=== PATIENT | female | born 1945 | race Caucasian/White ===

== ENCOUNTER 2020-01-19 13:38 | Emergency (ER) | payer MEDICARE, OTHER, SELFPAY ==
--- NOTE | 2020-01-19 13:42 | DI.RAD.S_ITS ---
PROCEDURE: XR CHEST 1V INDICATIONS: chest pain TECHNIQUE: One view of the chest was acquired. COMPARISON: None. FINDINGS: Surgical changes and devices: None. Lungs and pleura: Lungs are clear. No pleural effusions or pneumothorax. Mediastinum: Mediastinal contours appear normal. Heart size is normal. Bones and chest wall: No suspicious bony lesions. Overlying soft tissues appear unremarkable. IMPRESSION: No acute cardiopulmonary pathology. Dictated by: Daniel De Luna M.D. on 01/19/2020 at 14:24 Approved by: Daniel De Luna M.D. on 01/19/2020 at 14:37
--- NOTE | 2020-01-19 13:46 | PC.NURSE ---
1 view chest x-ray at 1346
[2020-01-19 13:51] VITALS: BP 166/68; PULSE 76; RESP 18; TEMP 36.7; O2SAT 98; BMI 34.7
[2020-01-19 14:07] LABS: Add Manual Diff / Slide Review NO; Basophils Absolute Auto 100 /uL (0-100); Basophils Percent Auto 0.7 % (0-2); Eosinophils Absolute Auto 200 /uL (0-450); Eosinophils Percent Auto 2.9 % (2-4); Hematocrit 38.2 % (36-46); Hemoglobin 12.8 g/dL (12.0-16.0); Lymphocytes Absolute Auto 2400 /uL (1100-4500); Lymphocytes Percent Auto 28.7 % (25-40); Mean Corpuscular HGB Conc 33.5 % (30-36); Mean Corpuscular Volume 86.4 fL (80-100); Monocytes Absolute Auto 900 /uL (0-900); Monocytes Percent Auto 10.1 % (3-14); Neutrophils Absolute Auto 4900 /uL (1500-7000); Neutrophils Percent Auto 57.6 % (50-75); Platelet Count 227 X10^3/uL (150-400); Red Blood Cell Count 4.43 X10^6/uL (4.0-5.2); Red Cell Distribution Width 13.7 % (11.6-14.8); White Blood Cell Count 8.4 X10^3/uL (4.5-11.0)
[2020-01-19 14:12] LABS: Prothrombin Time 11.8 SECONDS (10.1-12.7)
[2020-01-19 14:15] LABS: PTT Partial Thromboplastin Tim 31 SECONDS (26.4-36.2)
[2020-01-19 14:16] LABS: Alanine Aminotransferase 37 IU/L (<35); Albumin 4.2 g/dL (3.5-5.0); Albumin Globulin Ratio 1.4 (1.0-2.8); Alkaline Phosphatase 124 U/L (38-126); Aspartate Aminotransferase 33 IU/L (14-36); BUN Creatinine Ratio 18.8 (6-22); Bilirubin Total 0.4 mg/dL (0.2-1.3); Blood Urea Nitrogen 15 mg/dL (7-17); Calcium 9.2 mg/dL (8.4-10.2); Carbon Dioxide 29 mmol/L (22-32); Chloride 98 mmol/L (98-107); Creatine Kinase 40 U/L (30-135); Estimated Glomerular Filt Rate > 60.0 mL/min (>60); Glucose 103 mg/dL (80-110); HEMOLYSIS < 15 (0-50); Lipase 117 U/L (23-300); Potassium 3.8 mmol/L (3.4-5.1); Sodium 131 mmol/L (137-145); Total Protein 7.2 g/dL (6.3-8.2)
[2020-01-19 14:19] VITALS: BP 158/104; PULSE 68; RESP 20; O2SAT 99
--- NOTE | 2020-01-19 14:20 | PC.NURSE ---
c/o irregular heart rate that is now resolved. When it occurred she states she was light headed. Denied chest pain / shortness of breath through out entire episode.
[2020-01-19 14:28] LABS: Troponin I < 0.012 ng/mL (0.01-0.034)
--- NOTE | 2020-01-19 15:09 | ED_ITS ---
HPI - Chest Pain General Chief Complaint: Chest Pain Stated Complaint: heart problems Time Seen by Provider: 01/19/20 14:31 Source: patient Mode of arrival: Ambulatory Limitations: no limitations History of Present Illness HPI narrative: Patient is a ratna 74-year-old female who presents with heart palpitations she states that she had quite a stressful morning with her brother. She later felt some chest heaviness and like her heart is skipping a beat. Pain is nonradiating she denies any shortness of breath. She has not she sitting here her pain is a heaviness is gone. She has been on the monitor she has not shown any sign of skipped beats or arrhythmia. She states that she previously had an NSTEMI it sounds as though it was due to a secondary process. MD complaint: chest pain Duration: now resolved Onset: during rest Pain location: substernal Severity: mild Quality: heaviness Pain radiation: none Relieving factors: nothing Related Data Allergies Allergy/AdvReac Type Severity Reaction Status Date / Time sulfamethoxazole Allergy Mild ITCHING Unverified 11/06/17 12:07 [From ] trimethoprim [From ] Allergy Mild ITCHING Unverified 11/06/17 12:07 adhesive tape [ADHESIVE TAPE] AdvReac Severe RASH Unverified 11/06/17 12:07 PAPER/SILK TAPE OK Review of Systems Review of Systems Narrative: GENERAL: Denies chills, fatigue, malaise, fever, sweats, travel HEENT: Denies sinus pain, ear pain, sore throat, difficulty swallowing, neck pain RESPIRATORY: Denies dyspnea, cough, wheezing, hemoptysis, sputum. CARDIOVASCULAR: See HPI GASTROINTESTINAL: Denies nausea, vomiting, abdominal pain, diarrhea, constipation, melena. : Denies dysuria, frequency, incontinence, hematuria, urinary retention, flank pain. MUSCULOSKELETAL: Denies weakness, joint pain, or bony pain SKIN: No rash, no erythema, no pruritus NEUROLOGIC: Denies weakness, dizziness, headache, numbness, change in speech, confusion PSYCHIATRIC: No concerning psychosocial issues. 12 point review of systems is negative except for those stated above and HPI Patient History Medical History Asthma (Acute) Depression (Acute) Fibromyalgia (Acute) Hypertension (Inactive) Lumbar spinal stenosis (Acute) Osteoarthritis (Acute) Social History Smoking Status: Never smoker Smoking Status: Never smoker alcohol intake frequency: holidays/special occasions only Substance Use Type: does not use Exam Initial Vital Signs Initial Vital Signs: Vital Signs Temperature 98.1 F 01/19/20 13:51 Pulse Rate 76 01/19/20 13:51 Respiratory Rate 18 01/19/20 13:51 Blood Pressure 166/68 H 01/19/20 13:51 Pulse Oximetry 98 01/19/20 13:51 GENERAL: Pleasant alert well-appearing female and in no acute distress. HEENT: Head atraumatic,EOMI, pupils reactive, face symmetric, moist mucous membranes CARDIOVASCULAR: Regular rate and rhythm without murmurs, rubs or gallops. RESPIRATORY: Breath sounds equal bilaterally, no wheezes rales or rhonchi. ABDOMEN: Soft, nontender. Normoactive bowel sounds all 4 quadrants. No guarding or rebound. EXTREMITIES: Normal range of motion, no clubbing or edema. Neurovascularly intact NEUROLOGICAL: Alert and oriented x4.Normal gait and speech. Cranial nerves II through XII grossly intact. SKIN: Warm, dry, no laceration, no petechiae, no rashes or lesions. Scores HEART Score Heart Score history: Slightly Suspicious Heart Score EKG: Normal Heart Score Age: > or = 65 years old Heart Score risk factors: 1-2 risk factors Heart Score troponin: < or = to normal limit Heart Score Total: 3 Course Orders Ordered: ED Orders 01/19/20 13:42 XR chest 1V Stat EKG-12 Lead Stat 01/19/20 14:00 Complete Blood Count AUTO DIFF Stat Comprehensive Metabolic Panel Stat Lipase Stat Partial Thromboplastin Time Stat Prothrombin Time INR Stat TSH w/ Reflex to FT4 Stat Troponin & CK Cardiac Panel Stat 01/19/20 16:13 Troponin I Stat Vital Signs Vital signs: Vital Signs - 8 hr 01/19/20 13:51 01/19/20 14:19 01/19/20 15:29 Temperature 98.1 F Pulse Rate 76 68 65 Respiratory Rate 18 20 18 Blood Pressure 166/68 H Blood Pressure [Left Arm] 158/104 H 142/65 H Pulse Oximetry 98 99 97 01/19/20 16:39 01/19/20 18:20 Temperature 98.5 F Pulse Rate 68 61 Respiratory Rate 18 20 Blood Pressure 141/63 H Blood Pressure [Left Arm] 139/65 Pulse Oximetry 96 95 MDM - Chest Pain Lab Data Attestation: I reviewed the patient's lab results. Result diagrams: 01/19/20 14:00 01/19/20 14:00 Labs: Lab Results 01/19/20 01/19/20 01/19/20 Range/Units 14:00 14:00 14:00 WBC 8.4 (4.5-11.0) X10^3/uL RBC 4.43 (4.0-5.2) X10^6/uL Hgb 12.8 (12.0-16.0) g/dL Hct 38.2 (36-46) % MCV 86.4 (80-100) fL MCH 29.0 (26-34) PG MCHC 33.5 (30-36) % RDW 13.7 (11.6-14.8) % Plt Count 227 (150-400) X10^3/uL Neut % (Auto) 57.6 (50-75) % Lymph % (Auto) 28.7 (25-40) % [place] % (Auto) 10.1 (3-14) % Eos % (Auto) 2.9 (2-4) % Baso % (Auto) 0.7 (0-2) % Neut # (Auto) 4900 (0119-7684) /uL Lymph # (Auto) 2400 (4630-5578) /uL [place] # (Auto) 900 (0-900) /uL Eos # (Auto) 200 (0-450) /uL Baso # (Auto) 100 (0-100) /uL PT 11.8 (10.1-12.7) SECONDS INR 1.0 (0.9-1.3) APTT 31 (26.4-36.2) SECONDS Sodium 131 L (137-145) mmol/L Potassium 3.8 (3.4-5.1) mmol/L Chloride 98 (98-107) mmol/L Carbon Dioxide 29 (22-32) mmol/L BUN 15 (7-17) mg/dL Creatinine 0.80 (0.52-1.04) mg/dL Estimated GFR > 60.0 (>60) mL/min BUN/Creatinine Ratio 18.8 (6-22) Glucose 103 (80-110) mg/dL Calcium 9.2 (8.4-10.2) mg/dL Total Bilirubin 0.4 (0.2-1.3) mg/dL AST 33 (14-36) IU/L ALT 37 H (<35) IU/L Alkaline Phosphatase 124 (38-126) U/L Total Creatine Kinase 40 (30-135) U/L CK-MB (CK-2) TNP CK-MB (CK-2) Rel Index TNP Troponin I < 0.012 (0.01-0.034) ng/mL Total Protein 7.2 (6.3-8.2) g/dL Albumin 4.2 (3.5-5.0) g/dL Globulin 3.0 (1.7-4.1) g/dL Albumin/Globulin Ratio 1.4 (1.0-2.8) Lipase 117 (23-300) U/L TSH (0.47-4.68) uIU/mL 01/19/20 01/19/20 Range/Units 14:00 16:13 WBC (4.5-11.0) X10^3/uL RBC (4.0-5.2) X10^6/uL Hgb (12.0-16.0) g/dL Hct (36-46) % MCV (80-100) fL MCH (26-34) PG MCHC (30-36) % RDW (11.6-14.8) % Plt Count (150-400) X10^3/uL Neut % (Auto) (50-75) % Lymph % (Auto) (25-40) % [place] % (Auto) (3-14) % Eos % (Auto) (2-4) % Baso % (Auto) (0-2) % Neut # (Auto) (7805-2896) /uL Lymph # (Auto) (2838-2778) /uL [place] # (Auto) (0-900) /uL Eos # (Auto) (0-450) /uL Baso # (Auto) (0-100) /uL PT (10.1-12.7) SECONDS INR (0.9-1.3) APTT (26.4-36.2) SECONDS Sodium (137-145) mmol/L Potassium (3.4-5.1) mmol/L Chloride (98-107) mmol/L Carbon Dioxide (22-32) mmol/L BUN (7-17) mg/dL Creatinine (0.52-1.04) mg/dL Estimated GFR (>60) mL/min BUN/Creatinine Ratio (6-22) Glucose (80-110) mg/dL Calcium (8.4-10.2) mg/dL Total Bilirubin (0.2-1.3) mg/dL AST (14-36) IU/L ALT (<35) IU/L Alkaline Phosphatase (38-126) U/L Total Creatine Kinase (30-135) U/L CK-MB (CK-2) CK-MB (CK-2) Rel Index Troponin I < 0.012 (0.01-0.034) ng/mL Total Protein (6.3-8.2) g/dL Albumin (3.5-5.0) g/dL Globulin (1.7-4.1) g/dL Albumin/Globulin Ratio (1.0-2.8) Lipase (23-300) U/L TSH 2.40 (0.47-4.68) uIU/mL Imaging Data Chest x-ray: Radiologist's Impression: PROCEDURE: XR CHEST 1V INDICATIONS: chest pain TECHNIQUE: One view of the chest was acquired. COMPARISON: None. FINDINGS: Surgical changes and devices: None. Lungs and pleura: Lungs are clear. No pleural effusions or pneumothorax. Mediastinum: Mediastinal contours appear normal. Heart size is normal. Bones and chest wall: No suspicious bony lesions. Overlying soft tissues appear unremarkable. IMPRESSION: No acute cardiopulmonary pathology. Dictated by: Daniel De Luna M.D. on 01/19/2020 at 14:24 ECG Data Attestation: I personally reviewed and interpreted this ECG as follows: Prior ECG tracings: available for review Interpretation: Normal sinus rhythm rate 70 p.r. interval 176 QRS 106 QTC 477, no ST elevation depression or T-wave inversion MDM Narrative Medical decision making narrative: She actually now states that she had some has chest heaviness to eat yesterday she noticed at rest and with exertion but she was also coughing and had some abdominal pain as well she was able to sleep last night without any difficulty. Today she had significant heart palpitations. But now in the emergency department is better. She has 2-troponins no changes on her EKG, low risk heart score. I do recommend outpatient stress test and discussed with her to return to the emergency department if her symptoms worsen. Discharge Plan Departure Patient Disposition: Home Clinical Impression: Heart palpitations, Asthma Discharge Date/Time: 01/19/20 18:22 Instructions: DI for Chest Pain, DI for Palpitations Activity Restrictions/Additional Instructions: *You have been diagnosed with palpitation *What to do: I do recommend that he speak with your primary care provider in regards to further cardiac testing *Continue to take medications as directed *Follow up with your primary care provider in 2-3 days *Return to ER if you should have chest heaviness, palpitations dizziness shortness of breath weakness or any new, worsening or concerning symptoms Referrals: Geovani Shaikh DO [Primary Care Provider] -
[2020-01-19 15:29] VITALS: BP 142/65; PULSE 65; RESP 18; O2SAT 97
[2020-01-19 16:39] VITALS: BP 139/65; PULSE 68; RESP 18; O2SAT 96
[2020-01-19 17:43] LABS: Troponin I < 0.012 ng/mL (0.01-0.034)
[2020-01-19 18:20] VITALS: BP 141/63; PULSE 61; RESP 20; TEMP 36.9; O2SAT 95
== END 2020-01-19 18:22 | disposition home or self-care (01) ==
PROVIDERS: Emergency Provider Emergency Medicine; Family Provider Internal Medicine; PCP Family Medicine
DX: R00.2 Palpitations (principal); R07.9 Chest pain, unspecified; R10.9 Unspecified abdominal pain; R05 Cough; J45.909 Unspecified asthma, uncomplicated
CPT/HCPCS: 36415; 71045; 80053; 82550; 83690; 84443; 84484; 85025; 85610; 85730; 93005; 99284

== ENCOUNTER → 2020-03-28 12:45 | Outpatient (CLI) | payer MEDICARE, OTHER, SELFPAY ==
--- NOTE | 2020-03-28 | DI.CT.S_ITS ---
PROCEDURE: CT UE RT WO CON INDICATIONS: Pain in right shoulder TECHNIQUE: Noncontrast 1-1.5 mm thick sections acquired from the acromioclavicular joint to the inferior scapula, with coronal and sagittal reformatting. COMPARISON: None. FINDINGS: Image quality: Excellent. Bones: Severe glenohumeral joint osteoarthritis is seen with near complete loss of joint space, extensive subchondral sclerosis and cyst formation, and prominent inferior marginal osteophyte formation. Moderate acromioclavicular joint osteoarthritic changes also seen. No fracture or dislocation. No suspicious intraosseous lesion. Visualized left upper ribs are grossly intact. Soft tissues: There is no significant joint effusion. No intra-articular loose body. No full-thickness rotator cuff tendon rupture. Sagittal images shows mild to moderate supraspinatus muscle atrophy. IMPRESSION: 1. Severe glenohumeral joint osteoarthritis. No fracture or dislocation. No suspicious intraosseous lesion. Moderate acromioclavicular joint osteoarthritis. 2. No significant joint effusion. No full-thickness rotator cuff tendon rupture. No calcified intra-articular loose body. Mild to moderate supraspinatus muscle atrophy. Dictated by: Daniel De Luna M.D. on 03/28/2020 at 14:46 Approved by: Daniel De Luna M.D. on 03/28/2020 at 14:49
== END ==
PROVIDERS: Family Provider Internal Medicine; PCP Family Medicine; Referring Provider Orthopaedic Surgery; Visit Provider Orthopaedic Surgery
DX: M25.511 Pain in right shoulder (principal); M19.011 Primary osteoarthritis, right shoulder; M62.511 Muscle wasting and atrophy, not elsewhere classified, right shoulder
CPT/HCPCS: 73200

== ENCOUNTER → 2020-04-01 12:33 | Outpatient (CLI) | payer MEDICARE, OTHER, SELFPAY ==
--- NOTE | 2020-04-01 | DI.US.S_ITS ---
PROCEDURE: US ABDOMEN COMPLETE INDICATIONS: Right upper quadrant pain TECHNIQUE: Real-time scanning was performed of the abdominal and retroperitoneal organs, with image documentation. COMPARISON: None. FINDINGS: Liver: Liver is normal in size and homogeneous in echotexture. Gallbladder: Multiple gallstones present. No gallbladder wall thickening or pericholecystic fluid. Negative sonographic [place] sign. Biliary ducts: Intrahepatic bile ducts are non-dilated. Extrahepatic bile duct caliber measures 2.8 mm. Normal is 6-7 mm or less in diameter, or 10 mm or less post-cholecystectomy. Pancreas: Visualized portions of the pancreas are sonographically normal. Spleen: Spleen is normal in size and homogeneous in echotexture. Kidneys: Kidneys are normal in size and echotexture. Right kidney measures 9.0 cm long; left kidney measures 10.7 cm long. No hydronephrosis or nephrolithiasis. No solid masses. Aorta: Visualized aorta is normal in caliber at less than 3 cm. Iliacs: Proximal common iliac arteries are normal in caliber at less than 2.5 cm. IVC: Intrahepatic inferior vena cava is patent. Miscellaneous: No free abdominal fluid. IMPRESSION: Cholelithiasis without acute cholecystitis. If sonographically occult acute cholecystitis is suspected, nuclear medicine HIDA scan could be performed for further evaluation. Dictated by: Alvarez Williamson [facility] Interpreted: Daniel De Luna MD on 04/01/2020 at 13:49 Approved by: Daniel De Luna M.D. on 04/01/2020 at 15:49
== END ==
PROVIDERS: Family Provider Internal Medicine; PCP Family Medicine; Referring Provider Family Medicine; Visit Provider Physician Assistant
DX: R10.11 Right upper quadrant pain (principal); K80.20 Calculus of gallbladder without cholecystitis without obstruction; R11.0 Nausea; R74.8 Abnormal levels of other serum enzymes
CPT/HCPCS: 76700

== ENCOUNTER → 2020-04-12 09:15 | Outpatient (CLI) | payer MEDICARE, OTHER, SELFPAY ==
--- NOTE | 2020-04-12 | DI.NM.S_ITS ---
PROCEDURE: NM HIDA WITH CCK PHARMACEUTICAL: 4.9 mCi Tc-99m mebrofenin IV; 1.6 mcg CCK IV. INDICATIONS: Calculus of gallbladder without cholecystitis TECHNIQUE: Following intravenous administration of Tc-99m mebrofenin, sequential anterior abdominal images were obtained. To evaluate the contractile response of the gallbladder in response to Cholecystokinin (CCK), sincalide (0.02 ?g/kg) was administered by slow intravenous infusion approximately 60 minutes after the administration of the radiopharmaceutical. Sequential imaging was continued for 30 minutes after the start of CCK infusion. Gallbladder ejection fraction was calculated. COMPARISON: [facility], US ABDOMEN COMPLETE, 04/01/2020, 12:41. FINDINGS: Biliary scan: There is normal tracer uptake and excretion by the liver. There is normal visualization of the intrahepatic ducts, common bile duct, and gallbladder. There is normal tracer transit into the duodenum. CCK stimulation: There is absence of contractile response of the gallbladder to CCK infusion. The calculated gallbladder ejection fraction is 0%; normal values are above 35%. It has been shown that any patient abdominal pain after CCK administration is related to the rate of CCK injection, rather than to any underlying gallbladder disease (Clinical Nuclear Medicine 2012; 37: 63-70. Journal of Nuclear Medicine 2014; 55: 1-9). IMPRESSION: 1. Normal filling of gallbladder. No evidence for acute cholecystitis. 2. Absence of contractile response of gallbladder to CCK stimulation with ejection fraction at 0%. This finding may be secondary to gallbladder dyskinesia or chronic cholecystitis. Dictated by: Yaa Enrique M.D. on 04/12/2020 at 11:58 Approved by: Yaa Enrique M.D. on 04/12/2020 at 11:59
== END ==
PROVIDERS: Family Provider Internal Medicine; PCP Family Medicine; Referring Provider Family Medicine; Visit Provider Physician Assistant
DX: R10.11 Right upper quadrant pain (principal); K80.20 Calculus of gallbladder without cholecystitis without obstruction; R74.8 Abnormal levels of other serum enzymes
CPT/HCPCS: 78227; A9537; J2805

== ENCOUNTER → 2020-05-09 15:14 | Outpatient (CLI) | payer MEDICARE, OTHER, SELFPAY ==
[2020-05-09 21:59] LABS: COVID19 -Nasal RAPID Negative (Negative)
== END ==
PROVIDERS: Family Provider Internal Medicine; PCP Family Medicine; Visit Provider Physician Assistant
DX: Z01.812 Encounter for preprocedural laboratory examination (principal)
CPT/HCPCS: 87635

== ENCOUNTER 2020-05-12 06:06 | Inpatient (IN) | payer MEDICARE, OTHER, SELFPAY ==
[2020-05-02 08:47] VITALS: BMI 32.8
[2020-05-12] VITALS (20 sets, daily range): BP systolic 108–176; BP diastolic 46–152; PULSE 63–87; RESP 11–18; TEMP 36.6–37.1; O2SAT 93–98; BMI 34.7
[2020-05-12] MEDS: LACTATED RINGERS 1,000 ML 42 ML IV (06:50)
--- NOTE | 2020-05-12 07:34 | SUR.PREOP ---
Pt poor historian, helped with assessment questions,pt oriented x 4, stated she is very nervous.
--- NOTE | 2020-05-12 07:37 | DI.RAD.S_ITS ---
PROCEDURE: XR SHOULDER RT MIN 2V INDICATIONS: POST OPERATIVE RIGHT SHOULDER TECHNIQUE: 2 views of the shoulder were acquired. COMPARISON: None. FINDINGS: Bones: No fracture. Status post right shoulder arthroplasty. Hardware appears intact expected postoperative alignment. Soft tissues: Expected postsurgical changes and drain present IMPRESSION: Expected postoperative appearance Dictated by: Tucker Romano M.D. on 05/12/2020 at 17:30 Approved by: Tucker Romano M.D. on 05/12/2020 at 17:30
--- NOTE | 2020-05-12 07:38 | SUR.PREOP ---
Ashley CALDERON informed of no orders on this pt.
--- NOTE | 2020-05-12 07:43 | PM.PREOP ---
Pre-operative Note COVID-19 COVID-19 status: Negative Result date/Date tested (Pos, Neg/Pending): 05/09/20 Interval Note History & Physical reviewed/Exam performed by Physician: Yes Changes to H&P: No
[2020-05-12] MEDS: CEFAZOLIN 2 GM/100 ML FROZ.PIGGY IV (07:47)
--- NOTE | 2020-05-12 09:02 | SUR.OPER ---
Addendum entered by Ciara Wilcox R.N. 05/12/20 09:36: Gel pads under left arm and bilateral heels Original Note: Beach chair with Schleathan/Fernando shoulder positioner. Lower body on padded OR bed. Head in foam padded head cradle, secured with straps. Non-operative arm secured <90 degrees abduction. Pillow under knees. Safety belt at thigh. Cloth tape over blanket over lower legs.
[2020-05-12] MEDS: LIDOCAINE 1% W/EPI 20 ML INJ (09:13)
[2020-05-12] MEDS: LACTATED RINGERS 1,000 ML 120 ML IV (09:52)
--- NOTE | 2020-05-12 10:20 | PM.OP.1 ---
Operative Date/Time/Diagnoses Date of procedure: 05/12/20 Time of procedure: 08:00 Pre-op diagnosis: right shoulder arthritis Post-op diagnosis: same Procedure & Clinicians Procedure: right total shoulder arthroplasty Same procedure as scheduled: Yes Indications: right end-stage shoulder arthritis Surgeon: Jack Blanca Filter Machine Operator: Ashley Joshua Click Yes if Unassisted: No Anesthesia Type: General and Peripheral nerve block Operative Notes Findings: end-stage arthritic changes to the glenohumeral joint. Minimal flattening of the humeral head. No sign of any rotator cuff tears. No sign of any high riding humeral head. Osteophytes both anterior inferior as well as posterior around the head and neck. No significant loose bodies. Closure Type: primary Specimen(s): none sent Applied: implant(s) ( 8 mm stem, small glenoid, 46 x 18 humeral head) Estimated Blood Loss (mL): 150 Blood products transfused: none Procedure in detail: On date of service, Patient was met in the holding area. The operative site was signed and witnessed by the OR staff. The surgeries once again discussed with the patient and any remaining questions they had were answered fully. Patient was taken back to the operating theater and placed on the operating table in a supine position. Great care was taken to ensure that all bony prominences were properly padded. Patient was then placed into the beach chair position. The head and neck were properly positioned and secured. A timeout was performed verifying patient's name, procedure, and the operative site. The upper extremity was then prepped and draped in the normal sterile fashion. Previously, the bony anatomy and incision were marked out as well as injected with Marcaine with epinephrine. A deltopectoral approach was performed. 10 blade was used to incise the skin and fascial tissue. A deep knife was used to continue sharp dissection until the cephalic vein was visualized. The cephalic vein was dissected free allowing us to expose the deltopectoral interval. This interval was then developed. A Motley elevator was used to free up the deltoid of any scarring both superficially as well as deeply. The vein and the deltoid were taken laterally while the pectoralis was taken medially. This gave us good visualization of the strap muscles. The clavipectoral fascia was removed and the strap muscles were then retracted medially with the pectoralis. This gave us stabilization of the subscapularis. The circumflex vessels were ligated and the subscapularis was sharply excised off the lesser tuberosity and then tagged. Once the subscapularis was released we're able to dislocate the shoulder. Patient had end-stage arthritic changes to the humeral head as well as the glenoid with large osteophytes anterior inferiorly as well as posteriorly. A Ronger was then used to remove the osteophytes. Next, cutting guide was placed and a saw was used to remove the humeral head. Once the head was removed it was templated. A starting awl was then used to find the canal and then the humerus was reamed and broached. Trial stem was placed and a variety of heads were trialed. A protector placed for the osteotomy was then placed and and we turned our attention back to the subscapularis as well as the glenoid. The subscapularis was freed up and a 360? fashion. The degenerative anterior and inferior capsular tissue was removed. This was followed by removing the degenerative labral tissue from around the glenoid as well as the biceps insertion. This gave us good visualization of the glenoid. Glenoid trials were used until we found the appropriate fit and curvature. Next the center hole was drilled followed by reaming of the glenoid. The wound was copiously irrigated after reaming. Next the pegs were drilled and a trial glenoid was impacted into place. Once we were satisfied with the preparation of the glenoid, the final component was cemented into place. This was followed by impaction. We Return to our attention back to the humerus. The protector plate was removed and heads were trialed once again and so we found the appropriate fit. The trials were removed and bone tunnels were made into the humeral neck. #2 FiberWire were passed through the bone tunnels for eventual subscapularis repair. The final stem and head were impacted into place and the shoulder was reduced. It was taken through range of motion and was felt to be stable in both posterior translation as well as external and internal rotation with abduction. The subscapularis was repaired back to the lesser tuberosity through the bone tunnels. This was then reinforced with soft tissue repair. Part of the rotator interval was then closed. A drain was placed and the rest of the wound was closed in a layered fashion. The shoulder was then cleaned dried and dressed and the patient was taken to the PACU in stable condition. Patient will follow our postoperative protocol for total shoulder arthroplasty. Complications: none Post-operative Condition: stable Disposition: PACU Plan for aftercare: patient will follow our standard protocol for total shoulder arthroplasty
[2020-05-12] MEDS: HYDROMORPHONE 2 MG INJ IV ×4 (10:56→11:29)
--- NOTE | 2020-05-12 11:00 | SUR.PHASEI ---
Report given to Belen. Patient sitting on bed casper per patient request.
--- NOTE | 2020-05-12 11:13 | SUR.PHASEI ---
Assumed care from ISIDRO Proctor. Medicated with Dilaudid, pt states pain med is gradually helping, on bed casper.
--- NOTE | 2020-05-12 11:17 | SUR.PHASEI ---
Report back to ISIDRO Proctor.
[2020-05-12] MEDS: OXYCODONE IR 5 MG TABLET PO (11:40)
--- NOTE | 2020-05-12 11:50 | SUR.PHASEI ---
report called to Ashlyn
--- NOTE | 2020-05-12 12:10 | SUR.PHASEI ---
Patient transferred to the floor with pulse ox and belongings bag by Alaina.
[2020-05-12] MEDS: LACTATED RINGERS 1,000 ML 125 ML IV ×2 (13:19→21:46)
--- NOTE | 2020-05-12 14:14 | PC.NURSE ---
Patient is alert and oriented. Safe hand off from PACU. Patient VSS, lung sounds clear. C/o pain 3/10 in shoulder and numbness and tingling in R thumb, CMS intact. Patient has aquacell dressing w/ hemovac. Aquacell is CDI, hemovac output is serosanguineous. SCD's applied, IS given. Patient educated about the use of call light, bed is low and locked, bed alarm is active. Patient complains of pruritis, telephoned Dr. Last's office, Lawrence CALDERON gave verbal order for 25mg Benadryl Q6, PRN
[2020-05-12] MEDS: diphenhydrAMINE 25 MG TABLET PO (14:46)
--- NOTE | 2020-05-12 16:05 | PT.IIE ---
Current Diagnoses Old myocardial infarction (05/12/20) Primary osteoarthritis, right shoulder (05/12/20) Surgery Performed Operation Date: 05/12/20 07:45 Actual Procedures p Total Shoulder Arthroplasty(Right) - Jack Blanca MD Surgical History (Last Updated 05/02/20 @ 12:23 by Nano Rosado RN) H/O abdominoplasty (Acute ~2007) H/O bariatric surgery (Acute ~1997) History of appendectomy (Acute) History of arthroplasty of left knee (Acute) History of arthroplasty of right knee (Acute) History of bladder surgery (Acute) History of tonsillectomy and adenoidectomy (Acute) History of vaginal hysterectomy (Acute) Hx of bilateral cataract extraction (Acute) Hx of heart artery stent (Acute 07/2018) Medical History (Last Updated 05/02/20 @ 12:23 by Nano Rosado RN) Anxiety (Acute) Asthma (Acute) Coronary artery disease (Acute) Cystocele (Acute) Depression (Acute) Elevated liver enzymes (Acute) Fibromyalgia (Acute) GERD (gastroesophageal reflux disease) (Acute) Hearing impaired (Acute) HTN (hypertension) (Acute) Hypertension (Inactive) Lumbar spinal stenosis (Acute) Mini stroke (Acute) Mixed incontinence (Acute) Myocardial infarction (Acute 07/2018) ERIC (obstructive sleep apnea) (Acute) Osteoarthritis (Acute) Physical Therapy Inpatient Evaluation/Re-Eval M1 PT/OT-IP Prior Functional Status Start: 05/12/20 14:15 Freq: NEEDED Status: Active Protocol: Document 05/12/20 15:41 AW (Rec: 05/12/20 16:05 AW [email or web address]) Medical Review Prior Functional Status Medical History Reviewed Yes Communication WNL. Pt is an effective verbal communicator. Mobility and Gait Pt is an independent ambulator with a limit of a few blocks. Pt is right-handed. Activities of Daily Living and IADL's Pt states she needs help to don her bra; her helps . She is otherwise independent with I/ADL's but she does depend on her spouse for driving. Social History Household Members spouse Living Arrangements Apartment/Condo Number of Stairs To Enter/Railing? Pt lives in a 3rd floor condo. She typically has access to an elevator but states it was not working yesterday and today. Home Environment Standard Height Toilet,Tub/ Shower Home Equipment Four Wheel Walker,Straight Cane Employment Status Retired Additional Social History Comment Pt lives with her spouse who will be available and able to assist when pt goes home. M2 PT-IP Current Condition Start: 05/12/20 14:15 Freq: NEEDED Status: Active Protocol: Document 05/12/20 15:41 AW (Rec: 05/12/20 16:05 AW [email or web address]) Physical Therapy Current Condition Current Condition Evaluation Date 05/12/20 Treatment Diagnosis R TSA; difficulty in walking; impaired independence with ADL 's Onset Date 05/12/20 Precautions Shoulder Precautions Sling,PROM,Internal Rotation to Body,No External Rotation, No Abduction,Forward Flexion to 90 degrees,Pendulums Brace shoulder sling on at all times M3 PT-IP Subjective Start: 05/12/20 14:15 Freq: NEEDED Status: Active Protocol: Document 05/12/20 15:41 AW (Rec: 05/12/20 16:05 AW [email or web address]) Subjective Physical Therapy Visit Type Type Initial Evaluation Visit Start Time 14:25 Visit Stop Time 15:00 Total Visit Minutes 35 Physical Therapy Visit Comments Patient Comments Pt is somewhat groggy but is willing to participate with PT . Patient Goals Return home at discharge Therapy Pain Assessment Pain When Pain Assessed During Mobility Pain Present Pain Present Pain Reported Location r shoulder Intensity 3 Scale Used same at rest and during movement M4 PT-IP Mobility and Gait Start: 05/12/20 14:15 Freq: NEEDED Status: Active Protocol: Document 05/12/20 15:41 AW (Rec: 05/12/20 16:05 AW [email or web address]) PT-Bed Mobility Assessment Supine to Sit Supine to Sit Contact Guard Assistance,Head of Bed Elevated Sit to Supine Sit to Supine Standby Assistance Scooting Scooting to Edge of Bed Standby Assistance Scooting Up and Down in Bed Standby Assistance PT-Transfer Assessment Sit to and From Stand Sit to and from Stand Contact Guard Assistance,Use of Upper Extremities Equipment Transfer Assistive Device Gait Belt Transfers Transfer Destination Bed,Toilet Transfer Technique pt ambulated with and without IV pole support Transfer Ability Level of Assist Contact Guard Assistance Comments Mobility Comments Pt was lying in bed as PT arrived. Shoulder sling was loose and fit poorly. BP 134/ 66 HR 74 SpO2 95% on room air. With HOB elevated 30 degrees, pt moved her legs toward the right side of the bed and sat up CGA. Pt stood from the bed CGA. PT provided assist to adjust the sling for optimal fit. Pt used the IV pole for support to ambulate to the toilet. She tranferred to and from the toilet CGA without holding on to anything; she needed assist to manage the right side of her briefs. She then ambulated with and without IV pole support to the sink where she was able to wash her left hand. With mirror for visual feedback, PT provided instruction in fitting the sling with focus on positioning and support for the wrist. Pt ambulated back to the bed without IV pole support and transferred back to supine SBA. Pt was left with call light and all needs set up on her left side. PT placed fresh ice pack to right shoulder. Bed alarm was armed for safety. Gait Assessment Gait Gait Assistance Required: Standby Assistance,Contact Guard Assist Distance (Feet) 20 Assistive Devices Assistive Device Gait Belt Orthotic/Prosthetic Devices or Brace: No Gait Deviations General Gait Pattern Antalgic,Flexed Trunk,Wide Based Gait Factors Limiting Gait Function Factors Limiting Gait Function Decreased Strength,Limited Range of Motion,Pain,Poor Balance Comments Gait Comments See mobility comments for details. Stair Climbing Assessment Comments Stair Climbing Comments Not assessed. Pt usually uses elevator to access third floor apartment but may need to climb the stairs at discharge depending on elevator access. Pt usually is able to manage stairs independently. PT-Balance Assessment Sitting Balance and Reactions Static Sitting Balance Ability Good Dynamic Sitting Balance Ability Good Standing Balance and Reactions Static Standing Balance Ability Good Dynamic Standing Balance Ability Good M5 PT-IP Objective Assessments Start: 05/12/20 14:15 Freq: NEEDED Status: Active Protocol: Document 05/12/20 15:41 AW (Rec: 05/12/20 16:05 AW [email or web address]) Orientation Orientation/Cognition Level of Alertness Alert Orientation Name,Day of Week,Place, Situation Language Function Ability No Deficits Noted Safety Awareness Understands Safety Issues Memory Description No Deficits Noted Gross Range of Motion Upper Extremity ROM Assessment Right Impaired Lower Extremity ROM Assessment Within Functional Limits Strength Upper Extremity Strength Assessment Right Impaired Lower Extremity Strength Assessment Within Functional Limits Sensation Assessment Sensation Gross Sensation Right UE Impaired Comments Sensation Comments Pt reports tingling in digits 1-2. Muscle Tone Muscle Tone WNL Yes M6 PT-IP Treatment Start: 05/12/20 14:15 Freq: NEEDED Status: Active Protocol: Document 05/12/20 15:41 AW (Rec: 05/12/20 16:05 AW [email or web address]) Physical Therapy Treatment Exercises Exercises Shoulder Pendulums,Elbow Flexion/Extension,Wrist ROM, Hand ROM Education Education Provided Precautions,Post-Op Packet, Safety Brace Education [place],Patient Other Treatments Other Treatment Performed Provided education on role of PT, plan of care, post-op precautions, management of ADL 's, and proper fit of shoulder sling. Pt was provided handout with ADL promotion and ROM exercises. M7 PT-IP Assessment and Plan Start: 05/12/20 14:15 Freq: NEEDED Status: Active Protocol: Document 05/12/20 15:41 AW (Rec: 05/12/20 16:05 AW [email or web address]) PT Summary Assessment and Plan Potential Rehabilitation Potential Good Status of Condition at Evaluation Evolving Summary Impairments Pain,ROM,Strength,Balance, Sensation,Bed Mobility, Transfers,Gait Assessment Summary Carlie is a 75 yo woman seen for PT evaluation on POD0 following R TSA. She is independent with all mobilties at baseline. On evaluation, she required up to CGA assist for all mobility. She was slightly groggy and would benefit from at least one more acute PT session to review precautions, proper sling fitting, and ADL's management. Goals Bed Mobility Goal Independent Transfer Goal Independent Gait Goal Independent Gait Distance 200 Other Goals - inquire if elevator is working; if not - stair training Days to Meet Goals 2 Frequency of Treatment Frequency Of Treatment Twice a Day Treatment Plan Physical Therapy Treatment Plan Bed Mobility Training,Transfer Training,Gait Training, Therapeutic Exercise,Balance Retraining,Post Op Education, Discharge Planning,Hot or Cold Pack,Neuromuscular Re-ed Recommendations To Nursing Amount of Assist Needed Standby Assistance Discharge Recommendations PT Discharge Recommendations Home with Assistance Transportation Needs at Discharge Private Vehicle
[2020-05-12] MEDS: BENZOCAINE/MENTHOL 1 LOZ PKT 1 EACH PO (19:43)
[2020-05-12] MEDS: OXYCODONE IR 10 MG TABLET PO (21:46)
[2020-05-12] MEDS: DOCUSATE 100 MG CAPSULE PO (21:46)
[2020-05-12] MEDS: MAGNESIUM HYDROXIDE 30 ML UDC PO (21:46)
[2020-05-12] MEDS: HYDROMORPHONE 0.5 MG INJ 0.2 MG IV (21:46)
[2020-05-12] MEDS: ZOLPIDEM 5 MG TABLET PO (23:30)
[2020-05-12] MEDS: ACETAMINOPHEN 325 MG TABLET 975 MG PO (23:30)
--- NOTE | 2020-05-13 01:24 | PC.NURSE ---
Addendum entered by Luz Renae R.N. 05/13/20 04:48: Medicated earlier with Oxycodone per ISIDRO Woods for 7/10 pain in right shoulder. States pain severity improving and is now at 6/10 mostly with movement. Declines offer of ice pack. Dressing under axilla saturated with serosanguinous drainage so replaced. CMS intact. Original Note: 2346 Patient is alert and oriented. Breath sounds CTA with RA sat of 95%. HRR. Denies nausea. BT hypoactive and patient denies having passed any flatus as yet. Reports she has urinary urgency with some incontinence so is wearing a pull up; denies dysuria. Is able to move herself in bed. Evening RN reports she is getting up to [facility] with 1 assist. Aquacel dressing to right shoulder intact with drainage noted in middle of dressing; outlined. Hemovac is intact and compressed. Right arm is in sling. Bruising noted in right axilla. CMS intact except for small area of numbness on right thumb. Complains of 7/10 pain and had already been medicated with both IV and po Dilaudid so medicated with Tylenol. Wearing bilateral calf SCD's. Reports having fallen multiple times over past 3 months so fall risk score is high and bed alarm is activated.
[2020-05-13] MEDS: OXYCODONE IR 10 MG TABLET PO ×3 (04:30→11:50)
[2020-05-13] MEDS: BENZOCAINE/MENTHOL 1 LOZ PKT 1 EACH PO ×2 (04:30→06:58)
[2020-05-13 04:35] VITALS: BP 126/57; PULSE 74; RESP 18; TEMP 36.4; O2SAT 95
[2020-05-13 05:39] LABS: Hematocrit 28.5 % (36-46); Hemoglobin 9.6 g/dL (12.0-16.0); Mean Corpuscular HGB Conc 33.5 % (30-36); Mean Corpuscular Hemoglobin 28.4 PG (26-34); Mean Corpuscular Volume 84.8 fL (80-100); Platelet Count 172 X10^3/uL (150-400); Red Blood Cell Count 3.36 X10^6/uL (4.0-5.2); Red Cell Distribution Width 13.4 % (11.6-14.8); White Blood Cell Count 10.5 X10^3/uL (4.5-11.0)
[2020-05-13] MEDS: DOCUSATE 100 MG CAPSULE PO (08:14)
[2020-05-13] MEDS: ACETAMINOPHEN 325 MG TABLET 975 MG PO ×2 (08:15→11:50)
[2020-05-13] MEDS: HYDROMORPHONE 0.5 MG INJ 0.2 MG IV (08:23)
[2020-05-13] MEDS: SODIUM CHLORIDE 0.9% FLUSH 10 ML IV (08:24)
[2020-05-13 08:55] VITALS: BP 137/71; PULSE 72; RESP 16; TEMP 36.6; O2SAT 95
--- NOTE | 2020-05-13 09:34 | PM.DS.1 ---
History of Present Illness History of Present Illness Date Patient Seen: 05/13/20 Time Patient Seen: 09:34 Chief complaint: INPT Narrative: Pain is mild. Overnight pain was more moderate to severe. Denies fever chills. No nausea vomiting. Discharge Providers Provider Date of admission: 05/12/20 06:06 Discharge Date: 05/13/20 Primary care physician: Geovani Shaikh DO Consults: 05/12/20 10:14 Consult to Discharge Planning Routine Comment: Consult to Physical Therapy Evaluate & Treat Comment: Physician Instructions: Evaluate and Treat Consult to Respiratory Therapy Evaluate & Treat Comment: Physician Instructions: Evaluate and treat Discharge provider: Lawrence Chiu PA-C Summary Hospital Course Discharge Diagnosis: Right shoulder arthritis Hospital Course: Procedure: right total shoulder arthroplasty Same procedure as scheduled: Yes Indications: right end-stage shoulder arthritis Surgeon: Jack Blanca Optical Instrument Inspector: Ashley Joshua Click Yes if Unassisted: No Anesthesia Type: General and Peripheral nerve block Operative Notes Findings: end-stage arthritic changes to the glenohumeral joint. Minimal flattening of the humeral head. No sign of any rotator cuff tears. No sign of any high riding humeral head. Osteophytes both anterior inferior as well as posterior around the head and neck. No significant loose bodies. Closure Type: primary Specimen(s): none sent Applied: implant(s) ( 8 mm stem, small glenoid, 46 x 18 humeral head) Estimated Blood Loss (mL): 150 Blood products transfused: none Status at Discharge Cognitive/behavioral status at discharge: at baseline, oriented Functional status at discharge: independent ambulation Overall status at discharge: patient is progressing back to baseline Time Spent with Patient Time spent: Less than 30 minutes Exam Vital Signs (past 8 hours): - 05/13/20 04:35 05/13/20 08:55 Temperature 97.5 F L 97.8 F Pulse Rate 74 72 Respiratory Rate 18 16 Blood Pressure 126/57 L 137/71 Pulse Oximetry 95 95 Oxygen Delivery Method Room Air Oxygen Flow Rate 0 Narrative Exam Narrative: 75-year-old female resting comfortably in bedside chair in no apparent distress. Scant drainage on dressing. Motor functions intact distally of all fingers and wrist. Sensation grossly intact. Right hand is warm and dry. Objective Labs Result Diagrams: 05/13/20 04:50 Labs: Laboratory Results - last 24 hr 10/16/20 04:50 WBC 10.5 RBC 3.36 L Hgb 9.6 L Hct 28.5 L MCV 84.8 MCH 28.4 MCHC 33.5 RDW 13.4 Plt Count 172 Discharge Assessment & Plan Assessment and Plan Assessment: Patient progressing as expected status post right shoulder arthroplasty. Discharge home in stable condition. Discharge Plan Discharge Plan Patient Disposition: Home Discharge orders & Medications Prescriptions: New acetaminophen 325 mg Tablet 975 mg PO TID PRN (Reason: Headache) Qty: 60 RF: 0 bisacodyl 10 mg Suppository 10 mg MA PRN PRN (Reason: Constipation) Qty: 10 RF: 0 oxycodone 10 mg Tablet 10 mg PO Q3HR PRN (Reason: Pain, Severe (7-10)) Qty: 40 RF: 0 Continued atorvastatin 40 mg tablet 40 mg PO QNOON RF: 0 duloxetine [Cymbalta] 20 mg capsule,delayed release(DR/EC) 30 mg PO QNOON RF: 0 clopidogrel [Plavix] 75 mg tablet 75 mg PO QNOON RF: 0 zolpidem 10 mg tablet 10 mg PO DAILY RF: 0 hydrochlorothiazide 25 mg tablet 25 mg PO QNOON RF: 0 bupropion HCl 150 mg tablet sustained-release 12 hr 300 mg PO QNOON RF: 0 amlodipine 5 mg tablet 5 mg PO QNOON RF: 0 Myrbetriq 50 mg tablet extended release 24 hr 50 mg PO DAILY RF: 0 Linzess 290 mcg capsule 290 mcg PO QNOON RF: 0 pantoprazole 40 mg tablet,delayed release (DR/EC) 40 mg PO QNOON RF: 0 estradiol 0.01 % (0.1 mg/gram) cream 1 gram VAG 2XW Qty: 42.5 RF: 5 Follow up/Referrals: Geovani Shaikh DO [Primary Care Provider] - Jack Blanca MD [Physician] - (SNO 2 wks) Diet/Activity/Treatments Diet: Diet as Tolerated Activity: per post op protocol Cold/Heat Therapy: ice as needed Skin/Wound/Dressing Care Report to your healthcare provider any signs of infection, such as:: chills, fever, increased pain, unusual drainage and unusual redness Dressing: keep clean and dry Visit Report/Discharge Packet Instructions: DI for Prescription Opioid Use, DI for Shoulder Replacement Stand Alone Forms: Surgery Discharge Visit Report Forms: Patient Portal/API, Stroke Signs & Symptoms Discharge Data Primary Care Provider: Geovani Shaikh VTE Deep Vein Thrombosis/Pulmonary Embolism Present on Admission: No
--- NOTE | 2020-05-13 10:36 | PT.IPTN ---
Current Diagnoses Old myocardial infarction (05/12/20) Primary osteoarthritis, right shoulder (05/12/20) Surgery Performed Operation Date: 05/12/20 07:45 Actual Procedures p Total Shoulder Arthroplasty(Right) - Jack Blanca MD Physical Therapy Treatment Note M2 PT-IP Current Condition Start: 05/12/20 14:15 Freq: NEEDED Status: Active Protocol: Document 05/12/20 15:41 AW (Rec: 05/12/20 16:05 AW [email or web address]) Physical Therapy Current Condition Current Condition Evaluation Date 05/12/20 Treatment Diagnosis R TSA; difficulty in walking; impaired independence with ADL 's Onset Date 05/12/20 Precautions Shoulder Precautions Sling,PROM,Internal Rotation to Body,No External Rotation, No Abduction,Forward Flexion to 90 degrees,Pendulums Brace shoulder sling on at all times M3 PT-IP Subjective Start: 05/12/20 14:15 Freq: NEEDED Status: Active Protocol: Document 05/13/20 10:02 KS (Rec: 05/13/20 12:57 KS [email or web address]) Subjective Physical Therapy Visit Type Type Treatment Note Visit Start Time 10:02 Visit Stop Time 10:36 Total Visit Minutes 34 Number of PIN DRAFTING MACHINE TENDER Visits 1 Physical Therapy Visit Comments Patient Comments Pt agreeable to work w/ therapy and present for caregiver training. Patient Goals Return home at discharge Therapy Pain Assessment Pain When Pain Assessed During Mobility Pain Present Pain Present Pain Reported Location r shoulder Intensity 4 Scale Used Numeric (0 - 10) Description Aching,Tightness Pain Behaviors Guarding,Holding Area,[place] Pain Management Techniques Re-positioning,Timing of Activity with Medications M4 PT-IP Mobility and Gait Start: 05/12/20 14:15 Freq: NEEDED Status: Active Protocol: Document 05/13/20 10:02 KS (Rec: 05/13/20 12:57 KS [email or web address]) PT-Bed Mobility Assessment Scooting Scooting to Edge of Bed Standby Assistance Scooting Up and Down in Bed Standby Assistance PT-Transfer Assessment Sit to and From Stand Sit to and from Stand Standby Assistance,1 Person Assistance,Use of Upper Extremities Equipment Transfer Assistive Device Gait Belt Transfers Transfer Destination Chair Transfer Technique pt ambulated w/o AD Transfer Ability Level of Assist Standby Assistance Comments Mobility Comments Pt in chair upon arrival from therapy w/ in room. Pt SBA for scooting to EOC and sit<>stand. Pt stated she will be sleeping in recliner at home. Demonstrated gait belt application to pts , pt then ambulated to sink for instruction of sling application. Pts doffed and donned pts sling correctly w/ verbal cues. Pt then ambulated ~75 ft around room w/ SBA. Pt refused stair training, stating she does not need help w/ stairs at home. Pt and pts state they feel safe to return home and have outpatient therapy set up . Gait Assessment Gait Gait Assistance Required: Standby Assistance Distance (Feet) 75 Able to Maintain Weight Bearing Status Yes During Gait Assistive Devices Assistive Device Gait Belt Orthotic/Prosthetic Devices or Brace: No Gait Deviations General Gait Pattern Antalgic,Flexed Trunk,Wide Based Gait Factors Limiting Gait Function Factors Limiting Gait Function Decreased Strength,Limited Range of Motion,Pain,Poor Balance Comments Gait Comments See mobility comments for details. Stair Climbing Assessment Comments Stair Climbing Comments Not assessed. Pt usually uses elevator to access third floor apartment and refused stair training today, stating she does not have trouble doing stairs at home. PT-Balance Assessment Sitting Balance and Reactions Static Sitting Balance Ability Good Dynamic Sitting Balance Ability Good Standing Balance and Reactions Static Standing Balance Ability Good Dynamic Standing Balance Ability Good M5 PT-IP Objective Assessments Start: 05/12/20 14:15 Freq: NEEDED Status: Active Protocol: Document 05/12/20 15:41 AW (Rec: 05/12/20 16:05 AW [email or web address]) Orientation Orientation/Cognition Level of Alertness Alert Orientation Name,Day of Week,Place, Situation Language Function Ability No Deficits Noted Safety Awareness Understands Safety Issues Memory Description No Deficits Noted Gross Range of Motion Upper Extremity ROM Assessment Right Impaired Lower Extremity ROM Assessment Within Functional Limits Strength Upper Extremity Strength Assessment Right Impaired Lower Extremity Strength Assessment Within Functional Limits Sensation Assessment Sensation Gross Sensation Right UE Impaired Comments Sensation Comments Pt reports tingling in digits 1-2. Muscle Tone Muscle Tone WNL Yes M6 PT-IP Treatment Start: 05/12/20 14:15 Freq: NEEDED Status: Active Protocol: Document 05/13/20 10:02 KS (Rec: 05/13/20 12:57 KS [email or web address]) Physical Therapy Treatment Exercises Exercises Elbow Flexion/Extension,Wrist ROM,Hand ROM Education Education Provided Precautions,Post-Op Packet, Safety Brace Education [place],Patient Other Treatments Other Treatment Performed Caregiver training w/ pts including sling application. M7 PT-IP Assessment and Plan Start: 05/12/20 14:15 Freq: NEEDED Status: Active Protocol: Document 05/13/20 10:02 KS (Rec: 05/13/20 12:57 KS [email or web address]) PT Summary Assessment and Plan Potential Rehabilitation Potential Good Status of Condition at Evaluation Evolving Summary Impairments Pain,ROM,Strength,Balance, Sensation,Bed Mobility, Transfers,Gait Progress Towards Goals Progressing Toward Goals Assessment Summary Pt SBA for transfers and ambulation. OTs successfully able to carla and doff pts sling. Pt ambulated ~ 75 ft around room and performed wrist and hand ROM as well as elbow flexion/ extension, which she tolerated well. Pt refused stair training, stating she has no problem performing stairs at home. Pt will benefit from outpatient therapy, which she has set to begin next week. Goals Bed Mobility Goal Independent Transfer Goal Independent Gait Goal Independent Gait Distance 200 Other Goals - inquire if elevator is working; if not - stair training Days to Meet Goals 2 Frequency of Treatment Frequency Of Treatment Twice a Day Treatment Plan Physical Therapy Treatment Plan Bed Mobility Training,Transfer Training,Gait Training, Therapeutic Exercise,Balance Retraining,Post Op Education, Discharge Planning,Hot or Cold Pack,Neuromuscular Re-ed Recommendations To Nursing Amount of Assist Needed Standby Assistance Discharge Recommendations PT Discharge Recommendations Home with Assistance, Outpatient PT Transportation Needs at Discharge Private Vehicle
--- NOTE | 2020-05-13 13:43 | CM.DANOTE ---
DCP Assessment: EMR reviewed: patient is a 75 yr old female who was admitted for Rt TSA preformed by Dr. Blanca. Patients PCP is Dr. Shaikh. CM/RN met with patient at the bedside and explained role. patient was alert and oriented x3. Patient currently lives with her in a 3rd floor condo in [place]. Patient states there is usually an elevator for her to use to get to the 3rd floor but it is currently being repaired. Patient is Independent at base line and relays on her for all the driving needs. I: Medicare and for life Plan: D/C home with when medically stable- most likely today. D/C home with no needs. Sheyla Gilman RN Discharge Planning/Care Management CM Discharge Assessment Start: 05/13/20 13:41 Freq: Status: Active Protocol: Document 05/13/20 13:41 HS (Rec: 05/13/20 13:43 HS [id number]) Discharge Planning Assessment Assigned [employer] Sheyla Gilman RN DPOA/Assigned Designee Name Rei Oreilly () Contact Information [phone] Advance Directives? No History Provided By Patient Has Patient been admitted in last 30 No days? Prior Living Arrangements Apartment/Condo Household Members spouse Type of transporation used prior to Relies on Others admit Comment patients does all the driving. Independent with ADL's Yes Is patient alert and oriented? Yes Caregiver for Another No DME Already Rented / Owned FWW / Walker,Cane Barriers to Discharge No Discharge Plan Home Referrals Initiated None needed Whiteboard Updated in Patient Room with Yes name and ext. 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 Precinct Review Status In Process Next Review Type Continued Stay Review Pre-Anesthesia Assessment Start: 05/02/20 08:47 Freq: Status: Complete Protocol: Document 05/02/20 08:47 CAB (Rec: 05/02/20 09:57 CAB [id number]) Pre-Anesthesia Assessment Patient Information Reviewed Via Phone Assessment Assessment Completed With Patient Diagnostic Results BMP/CMP,CBC,EKG Comment Outside labs/EKG scanned, COVID screen @ 05/09/20 Primary Care Provider Geovani Shaikh Seen Specialist in Last 12 Months Yes Specialist Seen Shredding Specialist,General surgeon, Sign Carpenter,Orthopedist Primary Language Korean Skidder Required No Height 154.94 cm Weight 78.925 kg Body Mass Index (BMI) 32.8 Hearing Ability Hard of Hearing Visual Assist Magnifying Glass Dentition Type Teeth, Natural Present,Teeth, Missing Barriers to Learning Age related,Auditory Hx Anesthesia Reactions Yes: I woke up during surgery once Hx Family Anesthesia Reaction No Hx Malignant Hyperthermia No Hx Blood Transfusions Yes: s/p AL, c/w internal bleeding Hx Blood Transfusion Reaction No Anesthesia Review Requested No alcohol intake current alcohol intake frequency holidays/special occasions only Smoking Status Never smoker Substance Use Type does not use Pain Present Pain Reported Musculoskeletal Symptoms Abnormal Gait,Joint Pain, Limited Range of Motion,Neck Pain,Radiating Pain into Limb History of Falling (Recent or History of Yes ) Patient is completely paralyzed or No completely immobile Prosthesis or Orthotic Device Cane Mental Status Oriented to own ability Is patient on oxygen? 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 Santiago-last visit 03/03/20 Hx Pacemaker/ICD No Pacemaker Rep Required? No Cardiac Clearance Received Yes Comment Cardiac records scanned to record Diet Type At Home Regular dysphagia No Gastrointestinal Symptoms Bloating,Constipation,Reflux Bladder Pattern Frequency,Incontinent,Urgency Urinary Catheter Present No Hx Urinary Self Catheterization No Diabetes Yes: By current lab 03/23/20 HgbA1C 6.5 Date 03/23/20 Comment Discussed results w/pt, states PCP aware, told me nothing to worry about Patient No Lactating No Hx Drug Resistant Organism No Presence of External or Internal Medical Yes: Cardiac stent, bilat eye Devices lens, bilat knee prosthesis Have you had any close contact with No someone diagnosed with COVID-19? Marital Status Lives With spouse Prior Living Arrangements Apartment/Condo Number of Floors (Floors) One Floor Support System Spouse Does the Patient Have Assistance After Yes Surgery Patient Discharge Plan Description Return Home Comment Pt advised 1 day length of stay per surgeon Feels Safe in Current Environment Yes Been Physically Hurt or Threatened By a No Person in Current Environment Do you have thoughts of harming yourself None or others? Are you currently considering suicide? No Do you have a plan to hurt yourself or No Plan others? Do You Have Any Spiritual Beliefs That No May Affect Your HC Choices? Do You Have Any Cultural Practices That No May Affect Your HC Choices? Comment Kelin Who Can We Speak to About Patient's Care Family, friends Identifying Code for Release of Patient Declines to issue Information Health Care Proxy/Next of Kin Gibran () Health Care Proxy Emergency Contact Name Gibran () Emergency Contact Advance Directives? No Power of It Integration Architect No PAC Instructions Durable medical equipment, Medications to take/avoid, Nasal antibiotic,No ETOH/ petroleum product on skin DOS, NPO,Post-op transportation,Pre -surgical wash,Sturdy shoes/ comfortable clothes,Do not bring valuables and remove jewelry
--- NOTE | 2020-05-13 14:36 | PC.NURSE ---
Patient medicated with prn pain med prior to d/cs; d/c instructions includes f/u appt, s/sx infection, s/sx stroke, RX medications side effects, and care of shoulder; pt escorted via wheelchair to private vehicle
== END 2020-05-13 13:30 | disposition home or self-care (01) | DRG 483 ==
PROVIDERS: Admitting Provider Orthopaedic Surgery; Family Provider Internal Medicine; PCP Family Medicine; Referring Provider Orthopaedic Surgery; Visit Provider Orthopaedic Surgery
PROC: 0RQJ0ZZ Repair Right Shoulder Joint, Open Approach (ICD-10-PCS; CPT 23472; principal; 2020-05-12 07:45)
DX: M19.011 Primary osteoarthritis, right shoulder (principal); E66.9 Obesity, unspecified; I10 Essential (primary) hypertension; M79.7 Fibromyalgia; F32.9 Major depressive disorder, single episode, unspecified; J45.909 Unspecified asthma, uncomplicated; I25.10 Atherosclerotic heart disease of native coronary artery without angina pectoris; F41.9 Anxiety disorder, unspecified; G47.33 Obstructive sleep apnea (adult) (pediatric); Z68.34 Body mass index [BMI] 34.0-34.9, adult; Z01.812 Encounter for preprocedural laboratory examination; Z11.59 Encounter for screening for other viral diseases
CPT/HCPCS: 36415; 73030; 85027; 87635; 97110; 97116; 97161; 97530; C1776; J0330; J0690; J1100; J1170; J2405; J2704; J3010

== ENCOUNTER 2020-06-05 14:34 | Emergency (ER) | payer MEDICARE, OTHER, SELFPAY ==
[2020-05-12 13:01] VITALS: BMI 34.7
[2020-06-05] VITALS (19 sets, daily range): BP systolic 138–177; BP diastolic 62–74; PULSE 71–87; RESP 14–18; TEMP 36.4; O2SAT 91–98; BMI 33.2
--- NOTE | 2020-06-05 15:01 | DI.RAD.S_ITS ---
PROCEDURE: XR SHOULDER RT MIN 2V INDICATIONS: Recent total arthroplasty with concern of infection TECHNIQUE: 2 views of the shoulder were acquired. COMPARISON: [facility], CR, XR SHOULDER RT MIN 2V, 05/12/2020, 10:43. FINDINGS: Bones: Status post right shoulder arthroplasty which appears unchanged in postoperative alignment. No evidence for acute hardware complication. There is suggestion of overlying soft tissue swelling of the proximal right shoulder and upper arm. There is suggestion of possible subtle periosteal reaction involving the medial margin of the proximal right humeral diaphysis. This may be artifactual. No acute fractures or dislocations. No suspicious bony lesions. Visualized ribs appear intact. Soft tissues: No suspicious soft tissue calcifications. IMPRESSION: Status post right shoulder arthroplasty without evidence for acute hardware complication. There is soft tissue swelling of the right shoulder and right upper arm. No underlying osseous erosions but there is suggestion of possible subtle periosteal reaction of the proximal, medial cortex of the right humerus. This may be artifactual. Consider dedicated radiographs of the right humerus. Dictated by: Flavio Jauregui M.D. on 06/05/2020 at 14:16 Approved by: Flavio Jauregui M.D. on 06/05/2020 at 14:24
--- NOTE | 2020-06-05 15:45 | DI.RAD.S_ITS ---
PROCEDURE: XR HUMERUS RT 2V INDICATIONS: specifc view to r/o osteomyelitis TECHNIQUE: AP and lateral views of the humerus were acquired. COMPARISON: [facility], CT, CT UE RT WO CON, 03/28/2020, 12:59. [facility], CR, XR SHOULDER RT MIN 2V, 05/12/2020, 10:43. [facility], CR, XR SHOULDER RT MIN 2V, 06/05/2020, 15:03. FINDINGS: Bones: Status post right shoulder arthroplasty. Alignment is anatomic. No evidence for acute hardware complication. Previously described irregular cortex of the medial margin of the proximal right humerus is again noted. No cortical erosion. No overlying soft tissue mass. Soft tissues: No suspicious soft tissue calcifications. Soft tissue swelling overlying the right shoulder. IMPRESSION: Subtle, irregular cortex involving the medial margin of the proximal right humerus may represent irregular periosteal reaction secondary to an inflammatory/infectious process given reported history of concern for osteomyelitis. No osseous erosions. Other considerations include insertion site of the adjacent musculature as review of CT dated March 28, 2020 demonstrated mild cortical regularity in the proximal, medial humeral cortex. Dictated by: Flavio Jauregui M.D. on 06/05/2020 at 15:37 Approved by: Flavio Jauregui M.D. on 06/05/2020 at 15:48
--- NOTE | 2020-06-05 16:05 | ED_ITS ---
HPI - Skin/Abscess/Foreign Bdy <Ruthie IbarraJEAN CARLOS - Last Filed: 06/05/20 20:30> General Chief complaint: Skin/Abscess/Foreign Body Stated complaint: Suspects sepsis, few wks post-op of r shoulder Time Seen by Provider: 06/05/20 14:38 Source: patient Mode of arrival: Family Vehicle Limitations: no limitations History of Present Illness HPI narrative: 75yo female with a history of a right shoulder replacement approximately [address] Blanca, presents emergency department for r edness on her shoulder that started yesterday. Patient states her shoulder replacement has been painful, she did attend 1 of her follow-up appointment and this is reassuring approximately 1.5 weeks ago. However, she was concerned about the redness. She states she saw streaks coming down her arm this morning. Denies any pus or discharge from her incision. Patient denies any fevers, does report intermittent chills. She denies any abdominal pain, chest pain, shortness of breath, dizziness, nausea, vomiting, diarrhea, or any other concerns. Related Data Home Medications Medication Instructions Recorded Confirmed amlodipine 5 mg tablet 5 mg PO QNOON 02/17/20 05/12/20 atorvastatin 40 mg tablet 40 mg PO QNOON 02/17/20 05/12/20 bupropion HCl 150 mg tablet,12 hr 300 mg PO QNOON 02/17/20 05/12/20 sustained-release clopidogrel 75 mg tablet 75 mg PO QNOON 02/17/20 05/12/20 duloxetine 20 mg capsule,delayed 30 mg PO QNOON cap 02/17/20 05/12/20 release hydrochlorothiazide 25 mg tablet 25 mg PO QNOON 02/17/20 05/12/20 linaclotide 290 mcg capsule 290 mcg PO QNOON 02/17/20 05/12/20 mirabegron 50 mg tablet,extended 50 mg PO DAILY 02/17/20 05/12/20 release 24 hr pantoprazole 40 mg tablet,delayed 40 mg PO QNOON 02/17/20 05/12/20 release zolpidem 10 mg tablet 10 mg PO DAILY tab 02/17/20 05/12/20 Previous Rx's Medication Instructions Recorded estradiol 1 gram VAG 2XW #42.5 gram 04/05/20 acetaminophen 975 mg PO TID PRN #60 tab 05/13/20 bisacodyl 10 mg NH PRN PRN #10 ea 05/13/20 oxycodone 10 mg PO Q3HR PRN #40 tab 05/13/20 cephalexin 500 mg PO QID 10 Days #40 cap 06/05/20 Allergies Allergy/AdvReac Type Severity Reaction Status Date / Time adhesive tape [ADHESIVE TAPE] Allergy Severe RASH Verified 06/05/20 14:49 PAPER/SILK TAPE OK sulfamethoxazole Allergy Mild ITCHING Verified 06/05/20 14:49 [From ] trimethoprim [From ] Allergy Mild ITCHING Verified 06/05/20 14:49 paroxetine AdvReac Rash Verified 06/05/20 14:49 Review of Systems <JEAN CARLOS Darby - Last Filed: 06/05/20 20:30> Review of Systems Narrative: REVIEW OF SYSTEMS: GENERAL: Denies fever or chills. HENT: No head trauma. CARDIOVASCULAR: No chest pain or syncope. RESPIRATORY: No cough. GASTROINTESTINAL: No nausea, vomiting, diarrhea, or constipation. GENITOURINARY: No flank pain. MUSCULOSKELETAL: Complains of right shoulder pain, see HPI. INTEGUMENTARY: Reports redness to right shoulder, see HPI. NEURO: No numbness, tingling. PSYCH: No behavior or mood changes. Patient History <JEAN CARLOS Darby - Last Filed: 06/05/20 20:30> Medical History Anxiety (Acute) Asthma (Acute) Coronary artery disease (Acute) Cystocele (Acute) Depression (Acute) Elevated liver enzymes (Acute) Fibromyalgia (Acute) GERD (gastroesophageal reflux disease) (Acute) Hearing impaired (Acute) HTN (hypertension) (Acute) Hypertension (Inactive) Lumbar spinal stenosis (Acute) Mini stroke (Acute) Mixed incontinence (Acute) Myocardial infarction (Acute 07/2018) ERIC (obstructive sleep apnea) (Acute) Osteoarthritis (Acute) Surgical History H/O abdominoplasty (Acute ~2007) H/O bariatric surgery (Acute ~1997) History of appendectomy (Acute) History of arthroplasty of left knee (Acute) History of arthroplasty of right knee (Acute) History of bladder surgery (Acute) History of tonsillectomy and adenoidectomy (Acute) History of vaginal hysterectomy (Acute) Hx of bilateral cataract extraction (Acute) Hx of heart artery stent (Acute 07/2018) Family History Mother Hypertension Colon cancer Brother Hypertension Sister Hypertension Father Hypertension Grandmother Diabetes mellitus Father Pancreatic cancer Social History marital status: household members: spouse occupational status: previously employed Smoking Status: Never smoker alcohol intake: current substance use type: does not use Smoking Status: Never smoker alcohol intake frequency: holidays/special occasions only Substance Use Type: does not use Exam <JEAN CARLOS Darby - Last Filed: 06/05/20 20:30> Initial Vital Signs Initial Vital Signs: Vital Signs Temperature 97.6 F 06/05/20 14:44 Pulse Rate 71 06/05/20 14:44 Respiratory Rate 18 06/05/20 14:44 Blood Pressure 173/74 H 06/05/20 14:44 Pulse Oximetry 98 06/05/20 14:44 PHYSICAL EXAMINATION: GENERAL: Well groomed, alert, and cooperative. Answers questions promptly and appropriately. Vital signs noted. HENT: Normocephalic, atraumatic. EYES: Symmetrical, sclera white, no periorbital swelling. CARDIOVASCULAR: S1 and S2 sounds normal. Regular rate and rhythm, no murmurs, clicks, or bruits. No pedal edema. RESPIRATORY: Normal respiratory rate, trachea midline, airway patent. No stridor, nasal flaring or accessory muscle use. Lungs are clear in all [place]. MUSCULOSKELETAL: Slight tenderness to palpation of right shoulder which I would suspect postop. Normal gait and coordination. Equal tone and mass bilaterally. EXTREMITIES: CMS intact. An area of approximately 4 cm x 4 cm of erythema and increased temp noted to right anterior lateral aspect of shoulder, erythema is approximately 8 cm away from incision. Incision intact with healing scar, no purulent drainage or surrounding erythema. SKIN: Warm, dry, soft, appropriate color for ethnicity. No lesions, rashes, or wounds. NEURO: Alert and Oriented X 3. No sensory deficits. PSYCH: Appropriate affect and mood. <Shiva Álvarez DO - Last Filed: 06/06/20 07:17> Initial Vital Signs Initial Vital Signs: Vital Signs Temperature 97.6 F 06/05/20 14:44 Pulse Rate 71 06/05/20 14:44 Respiratory Rate 18 06/05/20 14:44 Blood Pressure 173/74 H 06/05/20 14:44 Pulse Oximetry 98 06/05/20 14:44 Course <JEAN CARLOS Darby - Last Filed: 06/05/20 20:30> Course Course Narrative: 1755: I spoke with orthopedic, Dr. Fraser, he states he will come evaluate the patient in approximately 2 hours when he has completed the case. 1930: Orthopedic, Dr. Fraser at bedside, confirms erythema is most likely superficial, recommends treatment for cellulitis and follow-up. Orders Ordered: Discontinued Medications Cephalexin HCl (Keflex) 500 mg PO NOW ONE Stop: 06/05/20 20:07 Last Admin: 06/05/20 20:34 Dose: 500 mg Documented by: MARION Consultations Consultation #1: Patient staffed [facility] Dr. Álvarez discussed test, test results, plan of care. Vital Signs Vital signs: Vital Signs - 8 hr 06/05/20 14:44 06/05/20 15:23 06/05/20 15:25 Temperature 97.6 F Pulse Rate 71 74 73 Respiratory Rate 18 Blood Pressure 173/74 H 177/68 H Pulse Oximetry 98 97 98 06/05/20 15:30 06/05/20 15:31 06/05/20 16:00 Temperature Pulse Rate 75 73 73 Respiratory Rate Blood Pressure 150/70 H Pulse Oximetry 96 95 98 06/05/20 16:30 06/05/20 17:00 06/05/20 17:30 Temperature Pulse Rate 71 71 72 Respiratory Rate Blood Pressure Pulse Oximetry 96 96 93 06/05/20 17:44 06/05/20 17:45 06/05/20 18:00 Temperature Pulse Rate 77 76 73 Respiratory Rate Blood Pressure 166/72 H Pulse Oximetry 97 98 97 06/05/20 18:01 06/05/20 18:30 06/05/20 19:00 Temperature Pulse Rate 73 76 76 Respiratory Rate Blood Pressure 161/73 H 138/62 155/70 H Pulse Oximetry 97 96 93 06/05/20 19:30 06/05/20 19:31 06/05/20 20:00 Temperature Pulse Rate 87 86 87 Respiratory Rate Blood Pressure 142/63 H 148/66 H Pulse Oximetry 94 95 91 <Shiva Álvarez DO - Last Filed: 06/06/20 07:17> Orders Ordered: Discontinued Medications Cephalexin HCl (Keflex) 500 mg PO NOW ONE Stop: 06/05/20 20:07 Last Admin: 06/05/20 20:34 Dose: 500 mg Documented by: MARION Vital Signs Vital signs: Vital Signs - 8 hr 06/05/20 14:44 06/05/20 15:23 06/05/20 15:25 Temperature 97.6 F Pulse Rate 71 74 73 Respiratory Rate 18 Blood Pressure 173/74 H 177/68 H Pulse Oximetry 98 97 98 06/05/20 15:30 06/05/20 15:31 06/05/20 16:00 Temperature Pulse Rate 75 73 73 Respiratory Rate Blood Pressure 150/70 H Pulse Oximetry 96 95 98 06/05/20 16:30 06/05/20 17:00 06/05/20 17:30 Temperature Pulse Rate 71 71 72 Respiratory Rate Blood Pressure Pulse Oximetry 96 96 93 06/05/20 17:44 06/05/20 17:45 06/05/20 18:00 Temperature Pulse Rate 77 76 73 Respiratory Rate Blood Pressure 166/72 H Pulse Oximetry 97 98 97 06/05/20 18:01 06/05/20 18:30 06/05/20 19:00 Temperature Pulse Rate 73 76 76 Respiratory Rate Blood Pressure 161/73 H 138/62 155/70 H Pulse Oximetry 97 96 93 06/05/20 19:30 06/05/20 19:31 06/05/20 20:00 Temperature Pulse Rate 87 86 87 Respiratory Rate Blood Pressure 142/63 H 148/66 H Pulse Oximetry 94 95 91 MDM - Skin/Abscess/Foreign Bdy <JEAN CARLOS Darby - Last Filed: 06/05/20 20:30> Medical Records Attestation: I reviewed the patient's medical records. Lab Data Attestation: I reviewed the patient's lab results. Result diagrams: 06/05/20 16:15 06/05/20 16:15 Labs: Lab Results 06/05/20 06/05/20 06/05/20 Range/Units 15:33 16:15 16:15 WBC 9.1 (4.5-11.0) X10^3/uL RBC 4.09 (4.0-5.2) X10^6/uL Hgb 11.0 L (12.0-16.0) g/dL Hct 34.3 L (36-46) % MCV 83.8 (80-100) fL MCH 26.9 (26-34) PG MCHC 32.1 (30-36) % RDW 13.9 (11.6-14.8) % Plt Count 304 (150-400) X10^3/uL Neut % (Auto) 73.4 (50-75) % Lymph % (Auto) 13.6 L (25-40) % [place] % (Auto) 8.3 (3-14) % Eos % (Auto) 2.0 (2-4) % Baso % (Auto) 2.7 H (0-2) % Neut # (Auto) 6700 (5814-7014) /uL Lymph # (Auto) 1200 (5315-6687) /uL [place] # (Auto) 800 (0-900) /uL Eos # (Auto) 200 (0-450) /uL Baso # (Auto) 200 H (0-100) /uL ESR 35 H (0-20) MM/HR Sodium 135 L (137-145) mmol/L Potassium 4.1 (3.4-5.1) mmol/L Chloride 102 (98-107) mmol/L Carbon Dioxide 27 (22-32) mmol/L BUN 17 (7-17) mg/dL Creatinine 0.93 (0.52-1.04) mg/dL Estimated GFR 58.6 L (>60) mL/min BUN/Creatinine Ratio 18.3 (6-22) Glucose 98 (80-110) mg/dL Lactate (0.7-2.1) mmol/L Calcium 9.2 (8.4-10.2) mg/dL Total Bilirubin 0.5 (0.2-1.3) mg/dL AST 32 (14-36) IU/L ALT 41 H (<35) IU/L Alkaline Phosphatase 163 H (38-126) U/L C-Reactive Protein < 0.5 (<1.0) mg/dL Total Protein 7.8 (6.3-8.2) g/dL Albumin 4.2 (3.5-5.0) g/dL Globulin 3.6 (1.7-4.1) g/dL Albumin/Globulin Ratio 1.2 (1.0-2.8) Lipase 52 (23-300) U/L Urine Color Yellow Urine Appearance Sl cloudy Urine pH 7.0 (4.5-8.0) Ur Specific [place] 1.010 (1.000-1.035) Urine Protein Negative (Negative) Urine Glucose (UA) Negative (Negative) g/dL Urine Ketones Negative (NEGATIVE) Urine Occult Blood Trace-intact (Negative) Urine Nitrate Negative (Negative) Urine Bilirubin Negative (NEGATIVE) Urine Urobilinogen 0.2 (0.2) E.U./dL Ur Leukocyte Esterase 1+ H (NEGATIVE) Urine RBC 0-1/hpf (0-5/HPF) Urine WBC 10-30/hpf H (0-5/HPF) Ur Squamous Epith Cells 0-1 /hpf (0-5/HPF) Urine Bacteria Few (2-10) H (None) Ur Culture Indicated? Specimen cultured 06/05/20 Range/Units 16:15 WBC (4.5-11.0) X10^3/uL RBC (4.0-5.2) X10^6/uL Hgb (12.0-16.0) g/dL Hct (36-46) % MCV (80-100) fL MCH (26-34) PG MCHC (30-36) % RDW (11.6-14.8) % Plt Count (150-400) X10^3/uL Neut % (Auto) (50-75) % Lymph % (Auto) (25-40) % [place] % (Auto) (3-14) % Eos % (Auto) (2-4) % Baso % (Auto) (0-2) % Neut # (Auto) (8453-3874) /uL Lymph # (Auto) (3307-3311) /uL [place] # (Auto) (0-900) /uL Eos # (Auto) (0-450) /uL Baso # (Auto) (0-100) /uL ESR (0-20) MM/HR Sodium (137-145) mmol/L Potassium (3.4-5.1) mmol/L Chloride (98-107) mmol/L Carbon Dioxide (22-32) mmol/L BUN (7-17) mg/dL Creatinine (0.52-1.04) mg/dL Estimated GFR (>60) mL/min BUN/Creatinine Ratio (6-22) Glucose (80-110) mg/dL Lactate 1.1 (0.7-2.1) mmol/L Calcium (8.4-10.2) mg/dL Total Bilirubin (0.2-1.3) mg/dL AST (14-36) IU/L ALT (<35) IU/L Alkaline Phosphatase (38-126) U/L C-Reactive Protein (<1.0) mg/dL Total Protein (6.3-8.2) g/dL Albumin (3.5-5.0) g/dL Globulin (1.7-4.1) g/dL Albumin/Globulin Ratio (1.0-2.8) Lipase (23-300) U/L Urine Color Urine Appearance Urine pH (4.5-8.0) Ur Specific [place] (1.000-1.035) Urine Protein (Negative) Urine Glucose (UA) (Negative) g/dL Urine Ketones (NEGATIVE) Urine Occult Blood (Negative) Urine Nitrate (Negative) Urine Bilirubin (NEGATIVE) Urine Urobilinogen (0.2) E.U./dL Ur Leukocyte Esterase (NEGATIVE) Urine RBC (0-5/HPF) Urine WBC (0-5/HPF) Ur Squamous Epith Cells (0-5/HPF) Urine Bacteria (None) Ur Culture Indicated? Urine Dip Bedside Urine Glucose Negative Bedside Urine Bilirubin - Negative Bedside Urine Ketone - Negative Urine Specific [place] 1.010 Bedside Urine Occult Blood +/- Bedside Urine pH 7.0 Bedside Urine Protein - Negative Bedside Urine Urobilinogen - Negative Bedside Urine Nitrite - Negative Bedside Urine Leukocytes +/- 15 Esterase Imaging Data Extremity x-ray #1: Radiologist's Impression: [address] [address] XRay Report Signed Patient: Carlie Oreilly EMR#: [id number] : 4Acct:[id number] Age/Sex: 75 / FDate of Service: 06/05/20 Loc: ED Accession Number: [id number] Procedure: XR shoulder RT min 2V Ordering Provider: Shiva Álvarez D.O. PROCEDURE: XR SHOULDER RT MIN 2V INDICATIONS: Recent total arthroplasty with concern of infection TECHNIQUE: 2 views of the shoulder were acquired. COMPARISON: [facility], CR, XR SHOULDER RT MIN 2V, 05/12/2020, 10:43. FINDINGS: Bones: Status post right shoulder arthroplasty which appears unchanged in postoperative alignment. No evidence for acute hardware complication. There is suggestion of overlying soft tissue swelling of the proximal right shoulder and upper arm. There is suggestion of possible subtle periosteal reaction involving the medial margin of the proximal right humeral diaphysis. This may be artifactual. No acute fractures or dislocations. No suspicious bony lesions. Visualized ribs appear intact. Soft tissues: No suspicious soft tissue calcifications. IMPRESSION: Status post right shoulder arthroplasty without evidence for acute hardware complication. There is soft tissue swelling of the right shoulder and right upper arm. No underlying osseous erosions but there is suggestion of possible subtle periosteal reaction of the proximal, medial cortex of the right humerus. This may be artifactual. Consider dedicated radiographs of the right humerus. Dictated by: Flavio Jauregui M.D. on 06/05/2020 at 14:16 Approved by: Flavio Jauregui M.D. on 06/05/2020 at 14:24 Extremity x-ray #2: Radiologist's Impression: [place] [address] XRay Report Signed Patient: Carlie Oreilly EMR#: [id number] : 4Acct:[id number] Age/Sex: 75 / FDate of Service: 06/05/20 Loc: ED Accession Number: [id number] Procedure: XR humerus RT 2V Ordering Provider: Ruthie Ibarra PROCEDURE: XR HUMERUS RT 2V INDICATIONS: specifc view to r/o osteomyelitis TECHNIQUE: AP and lateral views of the humerus were acquired. COMPARISON: [facility], CT, CT UE RT WO CON, 03/28/2020, 12:59. [facility], CR, XR SHOULDER RT MIN 2V, 05/12/2020, 10:43. [facility], CR, XR SHOULDER RT MIN 2V, 06/05/2020, 15:03. FINDINGS: Bones: Status post right shoulder arthroplasty. Alignment is anatomic. No evidence for acute hardware complication. Previously described irregular cortex of the medial margin of the proximal right humerus is again noted. No cortical erosion. No overlying soft tissue mass. Soft tissues: No suspicious soft tissue calcifications. Soft tissue swelling overlying the right shoulder. IMPRESSION: Subtle, irregular cortex involving the medial margin of the proximal right humerus may represent irregular periosteal reaction secondary to an inflammatory/infectious process given reported history of concern for osteomyelitis. No osseous erosions. Other considerations include insertion site of the adjacent musculature as review of CT dated March 28, 2020 demonstrated mild cortical regularity in the proximal, medial humeral cortex. Dictated by: Flavio Jauregui M.D. on 06/05/2020 at 15:37 Approved by: Flavio Jauregui M.D. on 06/05/2020 at 15:48 MDM Narrative Medical decision making narrative: 75-year-old female presenting to the emergency department for redness to her right shoulder, recent complete shoulder replacement approximately 3 weeks ago. I suspect patient's symptoms are most likely caused by cellulitis due to superficial erythema, and lack of significant joint swelling. Less concern for osteomyelitis due to normal CRP and negative white blood cell count. There was an elevation in ESR and some changes noted on x-ray and the periosteum, Dr. Fraser, orthopedic, was consulted, he reviewed the patient's chart, x-ray, and spoke with patient and confirmed suspicion of cellulitis versus osteomyelitis. Less concern for systemic infection, patient is afebrile, non tachycardic, nontoxic appearing. She was discharged with a prescription for Keflex per instruction from Dr. Fraser to treat cellulitis. She was encouraged to follow-up with PCP. Return precautions given for new or worsening symptoms. Patient agreed to plan of care and verbalized understanding. <Shiva Álvarez, DO - Last Filed: 06/06/20 07:17> Lab Data Labs: Lab Results 06/05/20 06/05/20 06/05/20 Range/Units 15:33 16:15 16:15 WBC 9.1 (4.5-11.0) X10^3/uL RBC 4.09 (4.0-5.2) X10^6/uL Hgb 11.0 L (12.0-16.0) g/dL Hct 34.3 L (36-46) % MCV 83.8 (80-100) fL MCH 26.9 (26-34) PG MCHC 32.1 (30-36) % RDW 13.9 (11.6-14.8) % Plt Count 304 (150-400) X10^3/uL Neut % (Auto) 73.4 (50-75) % Lymph % (Auto) 13.6 L (25-40) % [place] % (Auto) 8.3 (3-14) % Eos % (Auto) 2.0 (2-4) % Baso % (Auto) 2.7 H (0-2) % Neut # (Auto) 6700 (7132-2130) /uL Lymph # (Auto) 1200 (4463-4789) /uL [place] # (Auto) 800 (0-900) /uL Eos # (Auto) 200 (0-450) /uL Baso # (Auto) 200 H (0-100) /uL ESR 35 H (0-20) MM/HR Sodium 135 L (137-145) mmol/L Potassium 4.1 (3.4-5.1) mmol/L Chloride 102 (98-107) mmol/L Carbon Dioxide 27 (22-32) mmol/L BUN 17 (7-17) mg/dL Creatinine 0.93 (0.52-1.04) mg/dL Estimated GFR 58.6 L (>60) mL/min BUN/Creatinine Ratio 18.3 (6-22) Glucose 98 (80-110) mg/dL Lactate (0.7-2.1) mmol/L Calcium 9.2 (8.4-10.2) mg/dL Total Bilirubin 0.5 (0.2-1.3) mg/dL AST 32 (14-36) IU/L ALT 41 H (<35) IU/L Alkaline Phosphatase 163 H (38-126) U/L C-Reactive Protein < 0.5 (<1.0) mg/dL Total Protein 7.8 (6.3-8.2) g/dL Albumin 4.2 (3.5-5.0) g/dL Globulin 3.6 (1.7-4.1) g/dL Albumin/Globulin Ratio 1.2 (1.0-2.8) Lipase 52 (23-300) U/L Urine Color Yellow Urine Appearance Sl cloudy Urine pH 7.0 (4.5-8.0) Ur Specific [place] 1.010 (1.000-1.035) Urine Protein Negative (Negative) Urine Glucose (UA) Negative (Negative) g/dL Urine Ketones Negative (NEGATIVE) Urine Occult Blood Trace-intact (Negative) Urine Nitrate Negative (Negative) Urine Bilirubin Negative (NEGATIVE) Urine Urobilinogen 0.2 (0.2) E.U./dL Ur Leukocyte Esterase 1+ H (NEGATIVE) Urine RBC 0-1/hpf (0-5/HPF) Urine WBC 10-30/hpf H (0-5/HPF) Ur Squamous Epith Cells 0-1 /hpf (0-5/HPF) Urine Bacteria Few (2-10) H (None) Ur Culture Indicated? Specimen cultured 06/05/20 Range/Units 16:15 WBC (4.5-11.0) X10^3/uL RBC (4.0-5.2) X10^6/uL Hgb (12.0-16.0) g/dL Hct (36-46) % MCV (80-100) fL MCH (26-34) PG MCHC (30-36) % RDW (11.6-14.8) % Plt Count (150-400) X10^3/uL Neut % (Auto) (50-75) % Lymph % (Auto) (25-40) % [place] % (Auto) (3-14) % Eos % (Auto) (2-4) % Baso % (Auto) (0-2) % Neut # (Auto) (8944-2767) /uL Lymph # (Auto) (7443-4312) /uL [place] # (Auto) (0-900) /uL Eos # (Auto) (0-450) /uL Baso # (Auto) (0-100) /uL ESR (0-20) MM/HR Sodium (137-145) mmol/L Potassium (3.4-5.1) mmol/L Chloride (98-107) mmol/L Carbon Dioxide (22-32) mmol/L BUN (7-17) mg/dL Creatinine (0.52-1.04) mg/dL Estimated GFR (>60) mL/min BUN/Creatinine Ratio (6-22) Glucose (80-110) mg/dL Lactate 1.1 (0.7-2.1) mmol/L Calcium (8.4-10.2) mg/dL Total Bilirubin (0.2-1.3) mg/dL AST (14-36) IU/L ALT (<35) IU/L Alkaline Phosphatase (38-126) U/L C-Reactive Protein (<1.0) mg/dL Total Protein (6.3-8.2) g/dL Albumin (3.5-5.0) g/dL Globulin (1.7-4.1) g/dL Albumin/Globulin Ratio (1.0-2.8) Lipase (23-300) U/L Urine Color Urine Appearance Urine pH (4.5-8.0) Ur Specific [place] (1.000-1.035) Urine Protein (Negative) Urine Glucose (UA) (Negative) g/dL Urine Ketones (NEGATIVE) Urine Occult Blood (Negative) Urine Nitrate (Negative) Urine Bilirubin (NEGATIVE) Urine Urobilinogen (0.2) E.U./dL Ur Leukocyte Esterase (NEGATIVE) Urine RBC (0-5/HPF) Urine WBC (0-5/HPF) Ur Squamous Epith Cells (0-5/HPF) Urine Bacteria (None) Ur Culture Indicated? Urine Dip Bedside Urine Glucose Negative Bedside Urine Bilirubin - Negative Bedside Urine Ketone - Negative Urine Specific [place] 1.010 Bedside Urine Occult Blood +/- Bedside Urine pH 7.0 Bedside Urine Protein - Negative Bedside Urine Urobilinogen - Negative Bedside Urine Nitrite - Negative Bedside Urine Leukocytes +/- 15 Esterase Discharge Plan Departure Patient Disposition: Home Clinical Impression: Cellulitis Qualifiers: Site of cellulitis: unspecified site Qualified Code(s): L03.90 - Cellulitis, unspecified Discharge Date/Time: 06/05/20 20:44 Instructions: DI for Cellulitis -- Adult Activity Restrictions/Additional Instructions: Thank you for entrusting me with your care today. As discussed, it appears you have skin infection. Please take antibiotics as directed. Follow up with PCP in the next 1-2 weeks for further evaluation. Return emergency department for any new or worsening symptoms. Prescriptions: New cephalexin 500 mg capsule 500 mg PO QID 10 Days Qty: 40 RF: 0 No Action atorvastatin 40 mg tablet 40 mg PO QNOON RF: 0 duloxetine [Cymbalta] 20 mg capsule,delayed release(DR/EC) 30 mg PO QNOON RF: 0 clopidogrel [Plavix] 75 mg tablet 75 mg PO QNOON RF: 0 zolpidem 10 mg tablet 10 mg PO DAILY RF: 0 hydrochlorothiazide 25 mg tablet 25 mg PO QNOON RF: 0 bupropion HCl 150 mg tablet sustained-release 12 hr 300 mg PO QNOON RF: 0 amlodipine 5 mg tablet 5 mg PO QNOON RF: 0 Myrbetriq 50 mg tablet extended release 24 hr 50 mg PO DAILY RF: 0 Linzess 290 mcg capsule 290 mcg PO QNOON RF: 0 pantoprazole 40 mg tablet,delayed release (DR/EC) 40 mg PO QNOON RF: 0 estradiol 0.01 % (0.1 mg/gram) cream 1 gram VAG 2XW Qty: 42.5 RF: 5 acetaminophen 325 mg Tablet 975 mg PO TID PRN (Reason: Headache) Qty: 60 RF: 0 bisacodyl 10 mg Suppository 10 mg [place] PRN PRN (Reason: Constipation) Qty: 10 RF: 0 oxycodone 10 mg Tablet 10 mg PO Q3HR PRN (Reason: Pain, Severe (7-10)) Qty: 40 RF: 0 Referrals: Geovani Shaikh DO [Primary Care Provider] - <Shiva Álvarez DO - Last Filed: 06/06/20 07:17> Cosign ED Attending Cosignature Attestation: Dr Álvarez Co-Sign Statement: I was available for consultation during this patient's emergency department visit. This chart is signed by myself for administrative purposes only. I did not have direct contact with this patient during this visit. They were seen independe ntly by the APC.
[2020-06-05 16:30] LABS: Add Manual Diff / Slide Review NO; Basophils Absolute Auto 200 /uL (0-100); Basophils Percent Auto 2.7 % (0-2); Eosinophils Absolute Auto 200 /uL (0-450); Hematocrit 34.3 % (36-46); Lymphocytes Absolute Auto 1200 /uL (1100-4500); Lymphocytes Percent Auto 13.6 % (25-40); Mean Corpuscular HGB Conc 32.1 % (30-36); Mean Corpuscular Hemoglobin 26.9 PG (26-34); Mean Corpuscular Volume 83.8 fL (80-100); Monocytes Absolute Auto 800 /uL (0-900); Monocytes Percent Auto 8.3 % (3-14); Neutrophils Absolute Auto 6700 /uL (1500-7000); Neutrophils Percent Auto 73.4 % (50-75); Platelet Count 304 X10^3/uL (150-400); Red Blood Cell Count 4.09 X10^6/uL (4.0-5.2); Red Cell Distribution Width 13.9 % (11.6-14.8); White Blood Cell Count 9.1 X10^3/uL (4.5-11.0)
[2020-06-05 16:35] LABS: Lactate (Lactic Acid) 1.1 mmol/L (0.7-2.1)
[2020-06-05 16:36] LABS: Alanine Aminotransferase 41 IU/L (<35); Albumin 4.2 g/dL (3.5-5.0); Albumin Globulin Ratio 1.2 (1.0-2.8); Alkaline Phosphatase 163 U/L (38-126); Aspartate Aminotransferase 32 IU/L (14-36); BUN Creatinine Ratio 18.3 (6-22); Bilirubin Total 0.5 mg/dL (0.2-1.3); Blood Urea Nitrogen 17 mg/dL (7-17); Calcium 9.2 mg/dL (8.4-10.2); Carbon Dioxide 27 mmol/L (22-32); Chloride 102 mmol/L (98-107); Estimated Glomerular Filt Rate 58.6 mL/min (>60); Globulin 3.6 g/dL (1.7-4.1); Glucose 98 mg/dL (80-110); HEMOLYSIS 18 (0-50); Lipase 52 U/L (23-300); Potassium 4.1 mmol/L (3.4-5.1); Sodium 135 mmol/L (137-145); Total Protein 7.8 g/dL (6.3-8.2)
[2020-06-05 17:09] LABS: C-Reactive Protein Quant < 0.5 mg/dL (<1.0)
[2020-06-05 17:13] LABS: Erythrocyte Sedimentation Rate 35 MM/HR (0-20)
[2020-06-05 18:38] LABS: Appearance Urine UA SL CLOUDY; Bilirubin Urine UA NEGATIVE (NEGATIVE); Color Urine UA YELLOW; Glucose Urine UA NEGATIVE (Negative); Ketones Urine UA NEGATIVE (NEGATIVE); Leukocyte Esterase Urine UA 1+ (NEGATIVE); Nitrite Urine UA NEGATIVE (Negative); Occult Blood Urine UA TRACE-INTACT (Negative); Protein Urine UA NEGATIVE (Negative); Urobilinogen Urine UA 0.2 E.U./dL (0.2)
[2020-06-05 18:46] LABS: Bacteria Urine Few (2-10); Culture Indicated Urine Specimen Cultured; RBC Urine 0-1/HPF (0-5/HPF); Squamous Epithelial Cell Urine 0-1 /HPF (0-5/HPF); WBC Urine 10-30/HPF (0-5/HPF)
[2020-06-05] MEDS: cephALEXin 250 MG CAPSULE 500 MG PO (20:34)
== END 2020-06-05 20:44 | disposition home or self-care (01) ==
PROVIDERS: Emergency Medicine; Emergency Provider Nurse Practitioner; Family Provider Internal Medicine; PCP Family Medicine
DX: L03.113 Cellulitis of right upper limb (principal)
CPT/HCPCS: 36415; 73030; 73060; 80053; 81001; 81003; 83605; 83690; 85025; 85651; 86140; 87086; 99283; 99284

== ENCOUNTER → 2020-09-20 09:00 | Outpatient (CLI) | payer MEDICARE, OTHER, SELFPAY ==
[2020-05-12 13:01] VITALS: BMI 34.7
[2020-09-20 10:37] LABS: COVID19 -Nasal RAPID Negative (Negative)
== END ==
PROVIDERS: Family Provider Internal Medicine; PCP Family Medicine; Visit Provider Surgery
DX: Z01.812 Encounter for preprocedural laboratory examination (principal); Z20.822 Contact with and (suspected) exposure to COVID-19
CPT/HCPCS: 87635; C9803

== ENCOUNTER 2020-09-22 10:20 | Observation (INO) | payer MEDICARE, OTHER, SELFPAY ==
[2020-05-12 13:01] VITALS: BMI 34.7
[2020-09-13 10:09] VITALS: BMI 34.2
[2020-09-21] VITALS (18 sets, daily range): BP systolic 117–163; BP diastolic 40–87; PULSE 72–79; RESP 12–18; TEMP 36.4–36.9; O2SAT 92–97; BMI 34.2
--- NOTE | 2020-09-21 | DI.RAD.S_ITS ---
PROCEDURE: XR CHEST 1V INDICATIONS: sob TECHNIQUE: One view of the chest was acquired. COMPARISON: [facility], CR, XR CHEST 1V, 01/19/2020, 14:15. FINDINGS: Surgical changes and devices: Right shoulder arthroplasty. Lungs and pleura: Lungs are clear. No pleural effusions or pneumothorax. Mediastinum: Mediastinal contours appear normal. Heart size is normal. Bones and chest wall: No suspicious bony lesions. Overlying soft tissues appear unremarkable. IMPRESSION: No acute cardiopulmonary disease process. Dictated by: Andreea Lopez MD, PhD on 09/21/2020 at 16:51 Approved by: Andreea Lopez MD, PhD on 09/21/2020 at 16:51
--- NOTE | 2020-09-21 | PATH_ITS ---
[facility] Accession Number: [id number] . 01 Material submitted: . gallbladder - GALLBLADDER AND CONTENTS . 02 Diagnosis: Gallbladder, Cholecystectomy: Chronic cholecystitis. Cholesterolosis. Negative for dysplasia and malignancy. V 09/26/2020 1323 Local . 02 Electronically signed: . Tierney Villagomez MD, Pathologist NPI- [id number] . 01 Gross description: . The specimen is received in formalin, labeled gallbladder and consists of a 7.5 x 3.5 x 2.5 cm previously disrupted gallbladder with a 0.2 cm in diameter cystic duct. The serosa is hoyt-green and wrinkled. Opening reveals green viscous bile with no choleliths identified. The mucosa is day-green with cholesterolosis and the wall thickness measures 0.1 cm. Certified Pesticide Applicator sections are submitted to include the en face cystic duct margin (blue) in cassette A1. ([id number]) /MRV 09/23/2020 1048 Local . 02 Pathologist provided ICD-10: K81.1 . 02 CPT . 910869 Performed at: 01 [facility] [address] [place] [address], [place], [place] [id number] MD Elder Roper MD Phone: [phone] Performed at: 02 [facility] [address] [place], [place] [id number] MD Tierney Villagomez MD Phone: [phone]
[2020-09-21] MEDS: LACTATED RINGERS 1,000 ML 42 ML IV (11:17)
[2020-09-21] MEDS: Non-Formulary Medication (Indocyanine Green 25 MG) 25 EACH IV (11:22)
[2020-09-21] MEDS: ACETAMINOPHEN 325 MG TABLET 975 MG PO (13:30)
--- NOTE | 2020-09-21 13:35 | P.HP_ITS ---
History of Present Illness History of Present Illness Date Patient Seen: 09/21/20 Time Patient Seen: 13:35 Chief complaint: [facility] Narrative: This is a 75-year-old woman who has been having persistent right upper quadrant pain, and was found to have gallstones as well as biliary dyskinesia on an ultrasound and HIDA scan which were done in March. She has obesity, depression, osteoarthritis, sleep apnea, fibromyalgia. She had an MO about a year and a half ago and is on Plavix for stents that were placed at that time. She sees Dr. Esqueda in [place] for Cardiology. She last saw him for cardiac eval prior to shoulder surgery May 12 and was cleared for surgery by the transfer table operator helper. She experiences right upper quadrant pain about twice a day, and it is bothering her significantly. She denies any fevers or jaundice. ROS: Itching, change in vision, neck pain, change in bowel habits, constipation, diarrhea, difficulty swallowing, joint pain, joint swelling, muscle aches, dizziness, anxiety, depression. Thirteen system review is otherwise negative other than as mentioned below and in HPI. PE: GENERAL: Well groomed and cooperative. Appears stated age. Answers questions promptly and appropriately. Vital signs noted. HENT: Normocephalic, atraumatic. Hearing intact. EYES: Conjunctiva pink, sclera white, no periorbital swelling. CARDIOVASCULAR: Regular rate. No pedal edema. RESPIRATORY: Non-tachypneic, breathing comfortably on room air. GASTROINTESTINAL: Abdomen soft and non-distended; focal tenderness to palpation in the epigastrium and right upper quadrant, significant incisional scars including a long vertical midline incisional scar, and periumbilical and Pfannenstiel incisions from a tummy tuck GENITALURINARY: No flank tenderness. MUSCULOSKELETAL: Equal tone and mass bilaterally. SKIN: Warm, dry, soft, appropriate color for ethnicity. No other lesions, rashes, or wounds. NEURO: Alert and Oriented X 3. No gross sensory deficits, or cognitive issues. PSYCH: Appropriate affect and mood. Patient History Medical History Anemia Anxiety Arthritis Asthma Bruises easily Constipation Coronary artery disease Cystocele Depression Edema Elevated liver enzymes Fibromyalgia GERD (gastroesophageal reflux disease) Hearing impaired History of recurrent UTIs HTN (hypertension) Hypertension Low blood sugar Lumbar spinal stenosis Mini stroke Mixed incontinence Myocardial infarction (07/2018) ERIC (obstructive sleep apnea) Osteoarthritis Urinary incontinence Urinary retention Surgical History H/O abdominoplasty (~2007) H/O bariatric surgery (~1997) History of appendectomy History of arthroplasty of left knee History of arthroplasty of right knee History of bladder surgery History of tonsillectomy and adenoidectomy History of vaginal hysterectomy Hx of bilateral cataract extraction Hx of heart artery stent (07/2018) Family & Social History Family History Mother Hypertension Colon cancer Brother Hypertension Sister Hypertension Father Hypertension Grandmother Diabetes mellitus Father Pancreatic cancer Social History: household members spouse Prior Living Arrangements Apartment/Condo Tobacco & Substance use: Smoking Status Never smoker alcohol intake current alcohol intake frequency holiday/special occasion Substance Use Type does not use Meds Home Medications and Allergies Home Medications Medication Instructions Recorded Confirmed Type amlodipine 5 mg tablet 5 mg PO QNOON 02/17/20 09/21/20 History atorvastatin 40 mg tablet 40 mg PO QNOON 02/17/20 09/21/20 History bupropion HCl 150 mg tablet,12 hr 300 mg PO QNOON 02/17/20 09/21/20 History sustained-release clopidogrel 75 mg tablet 75 mg PO QNOON 02/17/20 09/21/20 History duloxetine 20 mg capsule,delayed 30 mg PO QNOON cap 02/17/20 09/21/20 History release hydrochlorothiazide 25 mg tablet 25 mg PO QNOON 02/17/20 09/21/20 History linaclotide 290 mcg capsule 290 mcg PO QNOON 02/17/20 09/21/20 History pantoprazole 40 mg tablet,delayed 40 mg PO QNOON 02/17/20 09/21/20 History release zolpidem 10 mg tablet 10 mg PO DAILY tab 02/17/20 09/21/20 History estradiol 1 gram VAG 2XW #42.5 gram 04/05/20 09/21/20 Rx acetaminophen 975 mg PO TID PRN #60 tab 05/13/20 09/21/20 Rx bisacodyl 10 mg SD PRN PRN #10 ea 10/16/20 02/24/21 Rx oxybutynin chloride 5 mg tablet 2.5 mg PO DAILY #30 tab 08/15/20 08/18/20 Rx aripiprazole 5 mg tablet 5 mg PO DAILY 08/18/20 09/21/20 History imipramine HCl 25 mg tablet 25 mg PO TID tab 08/18/20 09/21/20 History Allergies Allergy/AdvReac Type Severity Reaction Status Date / Time adhesive tape [ADHESIVE TAPE] Allergy Severe RASH Verified 09/21/20 11:07 PAPER/SILK TAPE OK sulfamethoxazole Allergy Mild ITCHING Verified 09/21/20 11:07 [From ] trimethoprim [From ] Allergy Mild ITCHING Verified 09/21/20 11:07 paroxetine AdvReac Rash Verified 09/21/20 11:07 Exam Vital Signs (past 8 hours): - 09/21/20 11:04 09/21/20 11:24 Temperature 98.5 F Pulse Rate 72 Respiratory Rate 18 14 Blood Pressure 163/77 H Pulse Oximetry 96 Oxygen Delivery Method Room Air Objective Imaging US - abdomen: Radiologist's impression: [address] [id number] ReportSigned Patient: Carlie Oreilly EMR#: [id number]: 4Acct:[id number]/Sex: 74 / FDate of Service: 04/01/20Loc: USAccession Number: [id number] Procedure: US abdomen complete Ordering Provider: Mara Aviles P.A-C PROCEDURE: US ABDOMEN COMPLETE INDICATIONS: Right upper quadrant pain TECHNIQUE: Real-time scanning was performed of the abdominal and retroperitoneal organs, with image documentation. COMPARISON: None. FINDINGS: Liver: Liver is normal in size and homogeneous in echotexture. Gallbladder: Multiple gallstones present. No gallbladder wall thickening or pericholecystic fluid. Negative sonographic [place] sign. Biliary ducts: Intrahepatic bile ducts are non-dilated. Extrahepatic bile duct caliber measures 2.8 mm. Normal is 6-7 mm or less in diameter, or 10 mm or less post-cholecystectomy. Pancreas: Visualized portions of the pancreas are sonographically normal. Spleen: Spleen is normal in size and homogeneous in echotexture. Kidneys: Kidneys are normal in size and echotexture. Right kidney measures 9.0 cm long; left kidney measures 10.7 cm long. No hydronephrosis or nephrolithiasis. No solid masses. Aorta: Visualized aorta is normal in caliber at less than 3 cm. Iliacs: Proximal common iliac arteries are normal in caliber at less than 2.5 cm. IVC: Intrahepatic inferior vena cava is patent. Miscellaneous: No free abdominal fluid. IMPRESSION: Cholelithiasis without acute cholecystitis. If sonographically occult acute cholecystitis is suspected, nuclear medicine HIDA scan could be performed for further evaluation. Assessment & Plan Assessment and plan (1) Biliary dyskinesia: Status: Acute (2) Gallstone: Qualifiers: Cholecystitis presence: with cholecystitis Cholecystitis acuity: chronic Biliary obstruction: without biliary obstruction Qualified Code(s): K80.10 - Calculus of gallbladder with chronic cholecystitis without obstruction Status: Acute (3) History of myocardial infarction: Status: Acute (4) History of coronary artery stent placement: Status: Acute (5) Platelet inhibition due to Plavix: Status: Acute (6) Obesity (BMI 30.0-34.9): Status: Acute Assessment & Plan narrative: Risks and benefits of laparoscopic possible open cholecystectomy were discussed with the patient including risk of bleeding, infection, damage to nearby structures, need for additional procedures, need for transfer to a tertiary center, bile duct injury, bile leak, need for open surgery, scarring, abscess, hernia. The patient desires to proceed with laparoscopic possible open cholecystectomy. COVID-19 COVID-19 status: Negative Result date/Date tested (Pos, Neg/Pending): 09/20/20 Time Spent With Patient Time with patient: 15-24 minutes Quality VTE Deep Vein Thrombosis/Pulmonary Embolism Present on Admission: No
[2020-09-21] MEDS: PIPERACILLIN-TAZO 3.375 GM/50 ML FROZ.PIGGY IV (13:49)
[2020-09-21] MEDS: BUPIVACAINE 0.25% (PF) VIAL 30 ML INJ (14:14)
[2020-09-21] MEDS: EPINEPHrine 1 MG/ML 0.15 MG SUBCUT (14:15)
--- NOTE | 2020-09-21 14:23 | SUR.OPER ---
Supine on padded OR bed, head on pillow, arms secured on padded arm boards at <90 degrees abduction, legs uncrossed, safety belt at thigh, tape over blanket over lower legs.
--- NOTE | 2020-09-21 15:27 | P.OP_ITS ---
Operative Date/Time/Diagnoses Date of procedure: 09/21/20 Time of procedure: 15:27 Pre-op diagnosis: Symptomatic cholelithiasis Post-op diagnosis: same Procedure & Clinicians Procedure: Laparoscopic cholecystectomy Indocyanine green cholangiography Same procedure as scheduled: Yes Indications: 75-year-old woman with gallstones, symptoms of biliary colic, and an abnormal HIDA scan Surgeon: Gale Birmingham Click Yes if Unassisted: Yes Anesthesia Type: General Operative Notes Findings: Thickened gallbladder with adhesions, dense midline adhesions, good critical view of safety Specimen(s): other (Gallbladder and contents) Estimated Blood Loss (mL): 2 Procedure in detail: The patient was brought into the operating room and placed supine on the OR table. Sequential compression devices were placed on both legs and turned on. Appropriate perioperative antibiotics were given prior to the start of surgery. General anesthesia was induced the patient was intubated. The abdomen was prepped and draped in sterile fashion. Surgical time-out was conducted. Local anesthetic was injected under the skin in the right upper quadrant at appropriate position for port placement. 5 mm skin incision was made, and a 5 mm optical port was placed with direct visualization of each abdominal wall layer, and entrance into the peritoneal cavity. Once correct position was verified visually, the abdomen was then insufflated in the usual fashion. Once insufflated to 15 mm Hg two additional ports were placed in a similar fashion in the right upper quadrant supraumbilical midline. And a 10 mm port was placed in the epigastrium. Through the 2 lateral ports the gallbladder was grasped and elevated and the infundibulum was retracted laterally to the patient's right. This exposed the gallbladder hilum and allowed for dissection of the cystic duct and cystic artery. There were some adhesions of omentum to the gallbladder fundus and the surface of the liver. These were taken down with hook cautery. At this point dissection of the gallbladder hilum was undertaken, and adhesions were taken down from the infundibulum and the surface of the cystic duct and artery. Indocyanine green cholangiography was used to identify the cystic duct and common bile duct. The cystic duct was easily seen, was very narrow, and and the common bile duct was well away from the area of dissection. Once the cystic duct and artery were completely dissected out I was able to see liver behind and between both structures without any other structures in the way, giving us the critical view of safety. At this point I triply clipped both structures on the patient's side and put a single clip on the gallbladder side of both the cystic duct and artery. Both structures were then divided with laparoscopic [place]. There was an additional posterior branch of the cystic artery, which was also clipped in the same manner and divided with laparoscopic [place]. Following this the gallbladder was gradually dissected free from the liver. There was quite a bit of hypervascularity of the scar tissue between the gallbladder and the liver. Several small vessels had to be controlled with cautery. Once the gallbladder was entirely freed, it was placed inside an Endo- Catch bag and removed through the epigastric port site. I did not have to enlarge the epigastric port site in order to get the gallbladder out. Once it was out and passed off to the back table I then took another look inside the abdomen. I irrigated and suctioned clean any remaining blood or fluid on the lateral side of the liver and in the subhepatic space. There was no active bleeding or leaking of bile from the gallbladder fossa or from the clipped stumps of the cystic duct and artery. At this point an O vicryl on a [place] D[place] suture passer was used to close the epigastric port site in the fascia. Insufflation was then removed from the abdomen. A 3 O Vicryl was used to close the subcutaneous layers, and 4 Monocryl in the skin. Additional local anesthetic was infiltrated into each port site. Each port site was sealed with Dermabond. This concluded the procedure. At this point the needle sponge and instrument counts were correct. The gallbladder was passed off the table for pathology. Patient was awakened from anesthesia and extubated. She was transferred to the postanesthesia care unit in stable condition. Complications: none Post-operative Condition: stable Disposition: PACU
[2020-09-21] MEDS: fentaNYL 100 MCG/2 ML INJ IV (15:35)
[2020-09-21] MEDS: OXYCODONE IR 5 MG TABLET PO ×2 (15:59→16:44)
[2020-09-21] MEDS: ALBUTEROL 2.5 MG/3 ML NEB (ADULT) INH (16:32)
[2020-09-21] MEDS: KETOROLAC 30 MG/ML VIAL IV (16:44)
[2020-09-21] MEDS: hydrOXYzine pamoate 25 MG CAPSULE PO (16:55)
--- NOTE | 2020-09-21 17:20 | SUR.PHASEII ---
PATIENT REPORTED SOB ONCE ARRIVED IN PHASE 2 RECOVERY, DURING ASSISTANCE TO BR FROM STRETCHER. SHE WAS ABLE TO URINATE PER HER URGENT REQUEST FOR SAME. PATIENT ASSISTED BACK TO STRETCHER, VSS. SAT 95% ON RA. UPPER AIRWAY TIGHT, VOICE HOARSE, SLIGHT STRIDOR, BUT NOT DISTRESSED, OTHERWISE LUNGS CLEAR. DR. MATA SUMMONED TO ASSESS PATIENT, GIVEN ALBUTEROL NEB PER ORDER AND CXR OBTAINED. PATIENT REPORTED SOME MILD IMPROVEMENT. 2CD VOID W/ ASSIST TO BSC. UPPER AIRWAY SYMPTOMS PERSIST ABOVE WITH NOT MUCH CHANGE. DR. CARROLL CAME TO BEDSIDE, WOULD PREFER PATIENT STAY OVERNIGHT. PATIENT AGREEABLE. REPORT GIVEN TO ISIDRO LARA. SPOUSE NOTIFIED OF RM 204. HE CONFIRMS UNDERSTANDING AND IS ALREADY IN THE BUILDING. PATIENT BROUGHT UP TO ACUTE CARE FLOOR IN STABLE CONDITION FOR CONTINUED MONITORING.
--- NOTE | 2020-09-21 18:25 | PM.CN ---
History of Present Illness Consult details Date Patient Seen: 09/21/20 Chief complaint: SDC Reason for consult: Stridor Requesting provider: Gale Birmingham Narrative: This is a 75-year-old female with past medical history of obesity, depression, osteoarthritis, ERIC not on nightly CPAP, fibromyalgia, mild intermittent asthma, coronary disease status post [place] with stent placement roughly 2 years ago, who presented to the hospital for cholecystectomy by Dr. Birmingham for biliary colic. She had a relatively routine surgery and was intubated during the procedure. Postprocedure really she developed some stridor and was admitted to the hospital for closer observation. The hospital medicine service was asked to consult for the patient's stridor. Meds Home Medications and Allergies Home Medications Medication Instructions Recorded Confirmed Type amlodipine 5 mg tablet 5 mg PO QNOON 02/17/20 09/21/20 History atorvastatin 40 mg tablet 40 mg PO QNOON 02/17/20 09/21/20 History bupropion HCl 150 mg tablet,12 hr 300 mg PO QNOON 02/17/20 09/21/20 History sustained-release clopidogrel 75 mg tablet 75 mg PO QNOON 02/17/20 09/21/20 History duloxetine 20 mg capsule,delayed 30 mg PO QNOON cap 02/17/20 09/21/20 History release hydrochlorothiazide 25 mg tablet 25 mg PO QNOON 02/17/20 09/21/20 History linaclotide 290 mcg capsule 290 mcg PO QNOON 02/17/20 09/21/20 History pantoprazole 40 mg tablet,delayed 40 mg PO QNOON 02/17/20 09/21/20 History release zolpidem 10 mg tablet 10 mg PO DAILY tab 02/17/20 09/21/20 History estradiol 1 gram VAG 2XW #42.5 gram 04/05/20 09/21/20 Rx acetaminophen 975 mg PO TID PRN #60 tab 05/13/20 09/21/20 Rx bisacodyl 10 mg IA PRN PRN #10 ea 05/13/20 09/21/20 Rx oxybutynin chloride 5 mg tablet 2.5 mg PO DAILY #30 tab 08/15/20 08/18/20 Rx aripiprazole 5 mg tablet 5 mg PO DAILY 08/18/20 09/21/20 History imipramine HCl 25 mg tablet 25 mg PO TID tab 08/18/20 09/21/20 History docusate sodium 100 mg PO BID #20 cap 09/21/20 Rx oxycodone 5 mg PO Q6H PRN #20 tab 09/21/20 Rx Allergies Allergy/AdvReac Type Severity Reaction Status Date / Time adhesive tape [ADHESIVE TAPE] Allergy Severe RASH Verified 09/21/20 11:07 PAPER/SILK TAPE OK sulfamethoxazole Allergy Mild ITCHING Verified 09/21/20 11:07 [From ] trimethoprim [From ] Allergy Mild ITCHING Verified 09/21/20 11:07 paroxetine AdvReac Rash Verified 09/21/20 11:07 Review of Systems Review of Systems ROS: Yes All systems reviewed with the patient and are negative except as otherwise documented Constitutional Constitutional: Denies chills and Denies fever(s) Eyes Eyes: Denies diplopia and Denies other visual disturbances ENT Ears, Nose, Mouth, and Throat: Yes sore throat Cardiovascular Cardiovascular: Denies chest pain and Denies dyspnea Respiratory Respiratory: Denies cough and Denies dyspnea Gastrointestinal Gastrointestinal: Reports abdominal pain Genitourinary Genitourinary: Denies hematuria Musculoskeletal Musculoskeletal: Denies arthralgias Neurologic Neurologic: Denies abnormal movements, Denies abnormal speech and Denies behavioral changes Psychiatric Psychiatric: Denies behavioral changes Exam Vital Signs (past 8 hours): - 09/21/20 11:04 09/21/20 11:24 09/21/20 15:27 Temperature 98.5 F 98.2 F Pulse Rate 72 74 Respiratory Rate 18 14 15 Blood Pressure 163/77 H 117/82 Pulse Oximetry 96 92 09/21/20 15:31 09/21/20 15:37 09/21/20 15:42 Temperature Pulse Rate 74 72 74 Respiratory Rate 14 13 14 Blood Pressure 128/71 129/65 146/51 H Pulse Oximetry 94 93 95 09/21/20 15:46 09/21/20 15:57 09/21/20 16:01 Temperature 98 F Pulse Rate 74 75 76 Respiratory Rate 12 15 15 Blood Pressure 147/57 H 138/87 123/40 L Pulse Oximetry 96 96 95 09/21/20 16:05 09/21/20 16:25 09/21/20 16:55 Temperature 97.8 F 98 F 98.0 F Pulse Rate 75 79 73 Respiratory Rate 16 18 18 Blood Pressure 148/57 H 155/67 H 160/76 H Pulse Oximetry 95 96 97 09/21/20 17:35 09/21/20 18:05 Temperature 97.9 F 97.5 F L Pulse Rate 75 72 Respiratory Rate 18 16 Blood Pressure 137/74 134/71 Pulse Oximetry 93 95 Oxygen Delivery Method Room Air Oxygen Flow Rate 0 Narrative Exam Narrative: Const General: cooperative, in no acute distress Orientation: alert, awake and oriented x3 HENMT Head: normal to inspection, normocephalic and atraumatic Eyes General: appearance normal, both eyes and all related structures Pupils: PERRL EOM: EOM intact bilaterally Neck Neck: normal visual inspection and full ROM Chest Chest: normal inspection of the chest and normal palpation of entire chest wall Pulmonary: The patient has an audible stridor throughout her lung denton and neck. There are no crackles or also. There are bilateral breath sounds. The patient has symmetric chest rise. Cardio Palpation: normal PMI Rate: regular rate Rhythm: regular rhythm Heart Sounds: S1 normal and S2 normal GI Inspection: normal to inspection Palpation: soft, No guarding and No tender Auscultation: normal bowel sounds Neuro General: patient alert, patient awake, patient oriented x3 and CN's II-XI intact bilaterally Motor: muscle tone normal throughout Sensory Exam: no sensory deficits noted Extrem General: normal to inspection Psych Mood: congruent mood Affect: normal affect Attitude: cooperative Thought Content: normal Objective Labs Labs: Assessment & Plan Assessment & Plan narrative: This is a 75-year-old female with past medical history of obesity, depression, osteoarthritis, hypertension, ERIC not on nightly CPAP, fibromyalgia, mild intermittent asthma, coronary disease status post [place] with stent placement roughly 2 years ago, who presented to the hospital for cholecystectomy by Dr. Birmingham for biliary colic. She had a relatively routine surgery and was intubated during the procedure. Postprocedure really she developed some stridor and was admitted to the hospital for closer observation. The hospital medicine service was asked to consult for the patient's stridor. #. Suspected postextubation laryngeal edema She has audible wheeze after extubation. She is not currently requiring any oxygen. She appears to be able to speak in full sentences without appreciable distress. She will be receiving racemic epinephrine and we will give her a dose of 40 mg IV Solu-Medrol. Will monitor her closely. Will check pulse ox continuously. Will also provide albuterol nebs due to concurrent asthma, however do not suspect concurrent asthma exacerbation. #. Biliary colic Status post cholecystectomy by Dr. Birmingham 09/21/20. Postoperative care per primary surgeon. #. Hypertension Continue home medications #. Depression Continue home meds DVT prophylaxis: SCDs Code status: Full code
[2020-09-21] MEDS: RACEPINEPHRINE 0.5 ML NEB INH (18:30)
[2020-09-21] MEDS: ACETAMINOPHEN 325 MG TABLET 650 MG PO (18:48)
[2020-09-21] MEDS: DOCUSATE 100 MG CAPSULE PO (20:20)
[2020-09-21] MEDS: BENZOCAINE/MENTHOL 1 LOZ PKT 1 EACH PO (20:21)
[2020-09-21] MEDS: IMIPRAMINE HCL 25 MG TABLET PO (20:30)
--- NOTE | 2020-09-21 21:37 | PC.NURSE ---
Shift note: Patient arrived to floor and upon transferred to inpatient bed, patient had audible stridor and shortness of breath. Notified RT as patient had gotten nebulizer treatment in PACU for stridor and patient's oxygen saturation was low 90's on RA. RT evaluated patient and made recommendations for treatment. Notified Dr Birmingham about this RN's concerns regarding stridor, new orders placed and hospitalist consulted. RT performed nebulizer with racemic epi and IV steriods given per SEP. Coordinator notified of patient's condition. Patient would become SOB with speaking but denied any difficulty breathing. Patient has improved oxygen saturations in high 90's and resolution of stridor per auscultation. Hx of falls, bruising to face and arms from recent fall. Bed alarm on and functioning, call light in reach, patient demonstrated use.
[2020-09-21] MEDS: ZOLPIDEM 5 MG TABLET 10 MG PO (22:15)
[2020-09-22] MEDS: ACETAMINOPHEN 325 MG TABLET 650 MG PO ×2 (00:13→05:50)
[2020-09-22 00:22] VITALS: BP 136/66; PULSE 76; RESP 16; TEMP 36.4; O2SAT 99
--- NOTE | 2020-09-22 02:17 | PC.NURSE ---
Addendum entered by Luz Renae R.N. 09/22/20 05:53: Found with oxygen off and RA sat this morning is 94% so left off oxygen. States incisional pain is 3/10 this morning so medicated with Tylenol. Up to BSC with 1 assist and voided without difficulty. Original Note: 0021: Is alert and oriented but very drowsy related to having had Ambien toward end of previous shift. Breath sounds CTA but on RA and asleep noted sats dropping into upper 80's so placed on oxygen at 2L/min per NC with sat now at 99% so oxygen decreased to 1L/min and will continue to monitor via continuous oximetry and titrate as needed. HRR. Denies nausea. BT present but denies having passed flatus as yet. Voided at end of evening shift; patient denies dysuria, frequency or urgency. Is able to turn herself in bed. Gait not assessed but reported on evening she was up to BSC with 1 assist. Lap sites to abdomen intact with dermabond and some surround bruising. Denies pain. Wearing bilateral calf SCD's. Fall risk score is high and bed alarm is activated.
[2020-09-22] MEDS: BENZOCAINE/MENTHOL 1 LOZ PKT 1 EACH PO (05:50)
[2020-09-22 05:56] VITALS: BP 120/60; PULSE 75; RESP 16; TEMP 36.8; O2SAT 95
[2020-09-22 07:25] VITALS: BP 134/69; PULSE 72; RESP 14; TEMP 36.7; O2SAT 93
[2020-09-22] MEDS: DOCUSATE 100 MG CAPSULE PO (08:10)
[2020-09-22] MEDS: IMIPRAMINE HCL 25 MG TABLET PO (08:10)
[2020-09-22] MEDS: SODIUM CHLORIDE 0.9% FLUSH 10 ML IV (08:10)
[2020-09-22] MEDS: ARIPiprazole 10 MG TABLET 5 MG PO (08:10)
--- NOTE | 2020-09-22 11:18 | PC.NURSE ---
Patient ready for discharge to home. No further stridor, patient denies shortness of breath or other complaints. 98% on room air this morning, tolerating food and denies any difficulty swallowing. Incisions to abdomen with dermabond in place remain CDI, with mild surrounding bruising noted. Discharge instructions reviewed with patient and her , they state understanding and have no further questions or concerns at this time. Escorted out via wheelchair with all belongings to discharge to home with her . Patient plans to call surgeon's office to confirm/schedule her follow up appointment.
--- NOTE | 2020-09-22 11:33 | CM.DANOTE ---
Discharge Planning/Care Management DCP: assessment: case received and discussed in Team Rounds. EMR reviewed. Pt is a 75 year old female who admitted for a scheduled Laproscopic Colecystectomy: Surgeon: Dr. Birmingham. Consulting: hospitalist Celso Rausch, DO Pt with post extubation stridor. Dr. Rausch stated in Rounds that he expected pt to go home today. A check in now with intent to meet with pt shows that pt was ok'd for home by Dr. Birmingham and Dr. Rausch and had already left for home. Admission status: OBS: per UR ISIDRO Benedict Payer: Medicare and [employer]. CM Discharge Assessment Start: 09/22/20 11:33 Freq: Status: Discharge Protocol: Document 09/22/20 11:33 ITV (Rec: 09/22/20 11:33 ITV [id number]) Discharge Planning Assessment Advance Directives? No History Provided By Medical Record Prior Living Arrangements Apartment/Condo Household Members spouse Is patient alert and oriented? Yes Discharge Plan Home Pre-Anesthesia Assessment Start: 09/13/20 10:08 Freq: Status: Complete Protocol: Document 09/13/20 10:09 VLJ (Rec: 09/13/20 10:15 [facility] [id number]) Pre-Anesthesia Assessment Patient Information Reviewed Via Chart Review H&P Completed Within 30 Days Yes Primary Care Provider Geovani Shaikh Seen Specialist in Last 12 Months Yes Specialist Seen Administration Dean,Emergency,General surgeon,Seaweed Harvester Preferred Language Tanzanian Commercial Internship Required No Height 152.4 cm Weight 79.379 kg Body Mass Index (BMI) 34.2 Hearing Ability Hard of Hearing Visual Assist Glasses,Magnifying Glass Dentition Type Teeth, Natural Present,Teeth, Missing Barriers to Learning Age related,Auditory Hx Anesthesia Reactions Yes: I woke up during surgery once Hx Family Anesthesia Reaction No Hx Malignant Hyperthermia No Hx Blood Transfusions Yes: s/p RI, c/w internal bleeding Hx Blood Transfusion Reaction No Anesthesia Review Requested No 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 No alcohol intake current alcohol intake frequency holidays/special occasions only Smoking Status Never smoker Substance Use Type does not use Musculoskeletal Symptoms Abnormal Gait,Joint Pain, Limited Range of Motion,Neck Pain History of Falling (Recent or History of Yes ) Patient is completely paralyzed or No completely immobile Prosthesis or Orthotic Device Cane Mental Status Oriented to own ability Hx Sleep Apnea Yes: No 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 Santiago-last visit 03/03/20 Hx Pacemaker/ICD No Comment Cardiac records scanned; spoke to the patient. She denies any new symptoms Additional comment of CP, SOB; states they think that she might not have had a heart attack Diet Type At Home Regular dysphagia No Gastrointestinal Symptoms Bloating,Constipation,Reflux Bladder Pattern Frequency,Incontinent,Urgency Urinary Catheter Present No Hx Urinary Self Catheterization No Diabetes Yes: By lab 03/23/20 HgbA1C 6.5 Date 03/23/20 Patient No Lactating No Hx Drug Resistant Organism No Presence of External or Internal Medical Yes: Cardiac stent, bilat eye Devices lens, bilat knee prosthesis Comment R TSA Marital Status Lives With spouse Prior Living Arrangements Apartment/Condo Number of Floors (Floors) One Floor Do You Have Any Spiritual Beliefs That No May Affect Your HC Choices? Do You Have Any Cultural Practices That No May Affect Your HC Choices? Health Care Proxy/Next of Kin Gibran () Health Care Proxy Emergency Contact Name Gibran () Emergency Contact Advance Directives? No Power of Auxiliary Engineer No Stop Bang Assessment Do you snore loudly (louder than talking No or loud enough to be heard through closed doors) Do you often feel tired, fatigued or Yes sleepy during the daytime Has anyone ever observed you stop Yes breathing while sleeping? Do you have, or are you being treated Yes for, high blood pressure Is your BMI more than 35 kg/m2 No Age over 50 Yes Gender male No Result Negative
== END 2020-09-22 11:16 | disposition home or self-care (01) ==
LOC: OR 10:50 → AC 10:50
PROVIDERS: Admitting Provider Surgery; Family Provider Internal Medicine; PCP Family Medicine; Referring Provider Family Medicine; Visit Provider Surgery
PROC: 0FT44ZZ Resection of Gallbladder, Percutaneous Endoscopic Approach (ICD-10-PCS; CPT 47562; principal; 2020-09-21 12:15)
DX: K80.20 Calculus of gallbladder without cholecystitis without obstruction (principal); R06.1 Stridor; K82.8 Other specified diseases of gallbladder; I25.10 Atherosclerotic heart disease of native coronary artery without angina pectoris; I25.2 Old myocardial infarction; K21.9 Gastro-esophageal reflux disease without esophagitis; I10 Essential (primary) hypertension; G47.33 Obstructive sleep apnea (adult) (pediatric); R32 Unspecified urinary incontinence; M79.7 Fibromyalgia; Z86.73 Personal history of transient ischemic attack (TIA), and cerebral infarction without residual deficits; Z79.01 Long term (current) use of anticoagulants; F41.9 Anxiety disorder, unspecified; F32.9 Major depressive disorder, single episode, unspecified; E66.9 Obesity, unspecified
CPT/HCPCS: 47562; 71045; 94640; 94762; 99219; G0378; J0171; J0330; J1100; J1885; J2405; J2543; J2704; J2920; J3010; J7613

== ENCOUNTER → 2020-12-29 08:51 | Outpatient (CLI) | payer MEDICARE, OTHER, SELFPAY ==
[2020-09-21 17:17] VITALS: BMI 34.2
--- NOTE | 2020-12-29 | DI.ECHO.S_ITS ---
[place] [facility]---------+ [facility] +---------+ : : [address] : : : : [id number] : : : : Phone: [phone] Echocardiogram Report + + :Name: FEROZ COLINDRES Study Date: 12/29/2020 Height: 61 in : :[facility] ReadingLocation: Weight: 180 lb : : Gender: Female BSA: 1.8 m2 : :: 1945 Age: 75 yrs BP: 198/98 mmHg: :Reason For Study: Bradycardia : :Ordering Physician: NELIA, : :CHE Performed By: Serafin Jarrell : :Referring: HCE PICKENS : + + Interpretation Summary The left ventricle is normal in size. There is mild concentric left ventricular hypertrophy. Left ventricular systolic function is normal. The ejection fraction is estimated to be 55-60%. There are no focal wall motion abnormalities. Diastolic function could not be accurately assessed due to unobtainable data. The right ventricle is normal in size and function. Pulmonary artery pressures cannot be estimated because of the lack of a measurable TR jet velocity but the IVC suggests a CVP of around 3 mmHg. The left atrium is mildly dilated. The right atrium is normal in size. There is no significant valvular heart disease. The aortic root is normal size. Moderate atherosclerotic plaque(s) in the aortic arch. Procedure: A two-dimensional transthoracic echocardiogram with color flow and Doppler was performed. The study quality was technically adequate. There is no prior echocardiogram noted for this patient. The patient was in sinus rhythm with heart rates between 67-75 bpm during the exam. Left Ventricle: The left ventricle is normal in size. There is mild concentric left ventricular hypertrophy. Left ventricular systolic function is normal. The ejection fraction is estimated to be 55-60%. There are no focal wall motion abnormalities. Diastolic function could not be accurately assessed due to unobtainable data. Right Ventricle: The right ventricle is normal in size and function. Atria: The left atrium is mildly dilated. The right atrium is normal in size. There is no Doppler evidence for an interatrial shunt. Mitral Valve: The mitral valve is normal in structure and function. There is trace mitral regurgitation. Aortic Valve: The aortic valve is normal in structure and function. No aortic regurgitation is present. Tricuspid Valve: The tricuspid valve is normal in structure and function. There is a trace or physiologic amount of tricuspid regurgitation. Pulmonary artery pressures cannot be estimated because of the lack of a measurable TR jet velocity but the IVC suggests a CVP of around 3 mmHg. Pulmonic Valve: The pulmonic valve is normal in structure and function. There is trace pulmonic regurgitation. There is no significant valvular heart disease. Great Vessels: The aortic root is normal size. The dimensions of the ascending aorta are normal. Moderate atherosclerotic plaque(s) in the aortic arch. The IVC is of normal diameter and collapses greater than 50% with a sniff. This suggests a low right atrial pressure of 3 mm Hg. Pericardium/ Pleura There is no pericardial effusion. There is no pleural effusion. MMode/2D Measurements & Calculations LVIDd: 4.9 cm LVOT diam: 2.1 cm LVIDs: 3.4 cm Ao root diam: 3.2 cm FS: 30.5 % asc Aorta Diam: 3.1 cm IVSd: 1.2 cm LVPWd: 1.3 cm LV chaves. diameter/BSA (cm/m^2): 2.7 LV sys. diameter/BSA (cm/m^2): 1.9 LA A2 area: 16.8 cm2 RA area: 13.0 cm2 LA A4 area: 19.2 cm2 LA length (vol): 4.3 cm LA vol: 63.0 ml LA vol index: 34.9 ml/m2 Doppler Measurements & Calculations Ao V2 max: 98.6 cm/sec LVOT Max Cuco: 93.2 cm/sec Ao V2 mean: 74.3 cm/sec LV V1 max P.5 mmHg Ao max P.9 mmHg LV V1 VTI: 21.6 cm Ao mean P.4 mmHg TASHIA(I,D): 3.2 cm2 Ao V2 VTI: 23.6 cm TASHIA(V,D): 3.3 cm2 sev ratio: 0.91 TASHIA indexed to BSA (cm^2/m^2): 1.7 MV E max cuco: 56.7 cm/sec PA V2 max: 93.9 cm/sec MV A max cuco: 103.6 cm/sec PA V2 mean: 69.7 cm/sec MV E/A: 0.55 PA mean P.1 mmHg Med Peak E' Cuco: 4.0 cm/sec PA pr(Accel): 49.9 mmHg E/E' med: 14.2 Lat Peak E' Cuco: 4.3 cm/sec E/E' lat: 13.1 E/e' average: 13.7 MV dec time: 0.28 sec SV([facility]): 74.7 ml Reading Physician:01:40 PM
== END ==
PROVIDERS: Family Provider Internal Medicine; PCP Family Medicine; Referring Provider Physician Assistant Medical; Visit Provider Physician Assistant Medical
DX: I70.0 Atherosclerosis of aorta (principal); R00.1 Bradycardia, unspecified; R42 Dizziness and giddiness; R06.00 Dyspnea, unspecified
CPT/HCPCS: 93306

== ENCOUNTER → 2021-03-01 17:12 | Outpatient (CLI) | payer MEDICARE, OTHER, SELFPAY ==
[2020-09-21 17:17] VITALS: BMI 34.2
== END ==
PROVIDERS: Family Provider Internal Medicine; PCP Family Medicine; Visit Provider Obstetrics & Gynecology
DX: N39.41 Urge incontinence (principal)
CPT/HCPCS: 87086

== ENCOUNTER → 2022-10-26 12:40 | Outpatient (CLI) | payer MEDICARE, OTHER, SELFPAY ==
[2020-09-21 17:17] VITALS: BMI 34.2
--- NOTE | 2022-10-26 | DI.MRI.S_ITS ---
PROCEDURE: MR SHOULDER RT WO CON INDICATIONS: WEAKNESS OF SHOULDER/PAIN IN RT SHOULDER TECHNIQUE: Noncontrast oblique coronal T2 fast spin echo with fat saturation, oblique sagittal T1 spin echo and T2 fast spin echo with fat saturation, axial T1 spin echo and T2 fast spin echo with fat saturation through the shoulder. COMPARISON: None. FINDINGS: Image quality: Limited due to susceptibility artifacts from right shoulder prosthesis. Rotator cuff: Distal supraspinatus and infraspinatus tendons are not well seen near their insertion on the humeral head due to susceptibility artifacts. No definite full-thickness rotator cuff tendon rupture. Sagittal images demonstrate moderate supraspinatus muscle atrophy. Bones and bursae: Patient is status post right shoulder arthroplasty with significant susceptibility artifacts. Moderate acromioclavicular joint osteoarthritis is seen. No gross marrow edema. No acute fracture or dislocation. Capsule and soft tissues: The long head of the biceps tendon demonstrates normal location and morphology. The rotator interval appears normal, without fibrosis. The coracohumeral ligament is normal in thickness. IMPRESSION: 1. Prior right shoulder arthroplasty with significant susceptibility artifacts partially limits evaluation. No marrow edema. No acute fracture or dislocation. Moderate acromioclavicular joint osteoarthritis. 2. Limited evaluation of rotator cuff tendons. No definite full-thickness rotator cuff tendon rupture. Moderate supraspinatus muscle atrophy is seen on sagittal views. 3. Visualized portion of proximal long head of biceps tendon is intact. Dictated by: Daniel De Luna M.D. on 10/26/2022 at 14:24 Approved by: Daniel De Luna M.D. on 10/26/2022 at 14:30
== END ==
PROVIDERS: Family Provider Internal Medicine; PCP Family Medicine; Referring Provider Physician Assistant; Visit Provider Physician Assistant
DX: R29.898 Other symptoms and signs involving the musculoskeletal system (principal); M19.011 Primary osteoarthritis, right shoulder; M25.511 Pain in right shoulder; Z96.611 Presence of right artificial shoulder joint
CPT/HCPCS: 73221

== ENCOUNTER → 2022-11-26 10:36 | Outpatient (CLI) | payer OTHER, SELFPAY ==
[2020-09-21 17:17] VITALS: BMI 34.2
--- NOTE | 2022-11-26 | DI.CT.S_ITS ---
PROCEDURE: CT UE RT WO CON INDICATIONS: INFECTION AND INFLAMMATORY REACTION TECHNIQUE: Noncontrast 1-1.5 mm thick sections acquired from the acromioclavicular joint to the inferior scapula, with coronal and sagittal reformatting. COMPARISON: [facility], MR, MR SHOULDER RT WO CON, 10/26/2022, 12:57. FINDINGS: Image quality: Diagnostic. Beam hardening artifacts from shoulder prosthesis are seen. Bones: Moderate acromioclavicular joint osteoarthritic changes are seen with joint space narrowing, subchondral sclerosis and downward osteophyte formation depressing the musculotendinous junction of supraspinatus. There is prior right shoulder arthroplasty with postsurgical changes and significant beam hardening artifacts. No gross hardware loosening or failure. No acute fracture or dislocation. No suspicious bony lesions. Superior migration of humeral head in relation to glenoid is noted. Soft tissues: There is suggestion of full-thickness rupture of distal supraspinatus at its insertion on the humeral head with medial retraction of torn tendon fibers to the level of glenoid and suggestion of moderate supraspinatus muscle atrophy is seen on sagittal views. Moderate joint effusion and subacromial subdeltoid bursal fluid is seen. No definite calcified intra-articular loose bodies. No abnormal soft tissue calcifications. IMPRESSION: 1. Prior right shoulder arthroplasty with significant beam hardening artifacts. No gross hardware loosening or failure. No acute fracture or dislocation. Moderate acromioclavicular joint osteoarthritis. No suspicious bony lesions. 2. Superior migration of humeral head in relation to glenoid with suggestion of full-thickness rupture of distal supraspinatus at its insertion on the humeral head and medial retraction of torn tendon fibers to the level of glenoid. Moderate supraspinatus muscle atrophy. 3. Moderate to large joint effusion and subacromial subdeltoid bursal fluid. No gross calcified loose bodies. No abnormal soft tissue calcifications. Dictated by: Daniel De Luna M.D. on 11/26/2022 at 12:36 Approved by: Daniel De Luna M.D. on 11/26/2022 at 12:39
== END ==
PROVIDERS: Family Provider Internal Medicine; PCP Family Medicine; Referring Provider Orthopaedic Surgery; Visit Provider Orthopaedic Surgery
DX: T84.59XA Infection and inflammatory reaction due to other internal joint prosthesis, initial encounter (principal); M19.011 Primary osteoarthritis, right shoulder; M25.411 Effusion, right shoulder; Z96.611 Presence of right artificial shoulder joint
CPT/HCPCS: 73200

== ENCOUNTER → 2022-12-10 10:12 | Outpatient (CLI) | payer OTHER, SELFPAY ==
[2020-09-21 17:17] VITALS: BMI 34.2
--- NOTE | 2022-12-10 | DI.RAD.S_ITS ---
PROCEDURE: FL FLUOROSCOPY >1HR COMPARISON: None. INDICATIONS: RULE OUT INFECTION/HX Right TSA FINDINGS: Fluoroscopic guidance utilized for a right shoulder aspiration. 2 millimeters of mildly thickened, clear white fluid was aspirated from the joint. 10 milliliter of saline was injected into the joint, and additional 2 milliliter of joint fluid was aspirated. IMPRESSION: Uncomplicated right shoulder joint aspiration. Approximately 4 cc of mildly thickened, clear white fluid was sent for laboratory analysis. Dictated by: Olivier Lion M.D. on 12/10/2022 at 13:58 Approved by: Olivier Lion M.D. on 12/10/2022 at 13:59
[2022-12-10 12:40] LABS: Crystals Body Fluid - IN-HOUSE NONE Present
[2022-12-10 12:50] LABS: Body Fluid Clotted? NO CLOTS PRESENT; Body Fluid Color COLORLESS; Body Fluid Tot Nucleated Cells 356 /uL
[2022-12-10 12:51] LABS: Body Fluid Red Blood Cells 144 /uL
[2022-12-10 12:56] LABS: Body Fluid Appearance SLIGHTLY CLOUDY
[2022-12-10 13:12] LABS: Eosinophils Body Fluid 0 %; Mononuclear WBC Body Fluid 97 %; Other Cells Body Fluid 0 %; Polynuclear WBC Body Fluid 3 %
== END ==
PROVIDERS: Family Provider Internal Medicine; PCP Family Medicine; Referring Provider Orthopaedic Surgery; Visit Provider Orthopaedic Surgery
DX: Z96.611 Presence of right artificial shoulder joint (principal); Z09 Encounter for follow-up examination after completed treatment for conditions other than malignant neoplasm
CPT/HCPCS: 76000; 87070; 87075; 87205; 89051; 89060

== ENCOUNTER → 2023-01-12 09:36 | Outpatient (CLI) | payer OTHER, SELFPAY ==
[2020-09-21 17:17] VITALS: BMI 34.2
--- NOTE | 2023-01-12 09:37 | DI.MRI.S_ITS ---
PROCEDURE: MR HEAD/BRAIN WO/W CON INDICATIONS: TARDIVE DYSKINESIA/HX OF ARTERIAL ISCHEMIC STROKE TECHNIQUE: Noncontrast axial T1 spin echo, axial T2 fast spin echo, sagittal and axial FLAIR, coronal T2 fast spin echo, axial gradient echo, axial diffusion and ADC through the brain. After the administration of contrast, axial and coronal and sagittal 3D VIBE or T1 spin echo with fat saturation through the brain. COMPARISON: None. FINDINGS: Image quality: Excellent. CSF Spaces: Basal cisterns are patent. No extra-axial fluid collections. Ventricles are normal in size and shape. Brain: No intracranial masses or hemorrhage. Paz/white matter interface is normal. Brainstem appears normal. Diffusion-weighted sequence is unremarkable without evidence of acute infarct. Normal intravascular flow voids are present. Mild atrophy and white matter chronic ischemic change present. Old lacunar infarct noted in the left globus pallidus and right caudate deep paz nuclei, and there is an old cortical infarct in the left cerebellum Skull and face: Calvarial marrow is normal in signal. Orbits appear normal. Bilateral intraocular lens replacements noted. Sinuses: Sinuses and mastoids appear clear. IMPRESSION: Mild atrophy and white matter chronic ischemic change without acute infarct, hemorrhage or mass lesion. Old bilateral basal ganglia lacunar infarcts. 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 Approved by: Kash Yoon M.D. on 01/14/2023 at 17:26
== END ==
PROVIDERS: Family Provider Internal Medicine; PCP Family Medicine; Referring Provider Psychiatry & Neurology Neurology; Visit Provider Psychiatry & Neurology Neurology
DX: T43.595A Adverse effect of other antipsychotics and neuroleptics, initial encounter (principal); G24.01 Drug induced subacute dyskinesia; R42 Dizziness and giddiness; Z86.73 Personal history of transient ischemic attack (TIA), and cerebral infarction without residual deficits; R26.9 Unspecified abnormalities of gait and mobility
CPT/HCPCS: 70553; A9579

== ENCOUNTER → 2023-02-26 10:58 | Outpatient (CLI) | payer OTHER, SELFPAY ==
[2020-09-21 17:17] VITALS: BMI 34.2
--- NOTE | 2023-02-26 11:02 | DI.CT.S_ITS ---
PROCEDURE: CT UE RT WO CON INDICATIONS: Presence of right artificial shoulder joint TECHNIQUE: Noncontrast 1-1.5 mm thick sections acquired from the acromioclavicular joint to the inferior scapula, with coronal and sagittal reformatting. COMPARISON: [facility], CT, CT UE RT WO CON, 11/26/2022, 10:42. FINDINGS: Image quality: Diagnostic. Beam hardening artifacts from right shoulder prosthesis are seen. Bones: Again noted is prior right shoulder arthroplasty with significant beam hardening artifacts. There is no gross hardware loosening or failure. No acute fracture or dislocation. Moderate acromioclavicular joint osteoarthritic changes are again seen unchanged from prior study. No suspicious bony lesions. Visualized right ribs are grossly intact. Soft tissues: There is no full-thickness rotator cuff tendon rupture. Sagittal views shows [id number] supraspinatus muscle atrophy. No abnormal soft tissue calcifications. No significant joint effusion or calcified intra-articular loose bodies. No axillary lymphadenopathy by size criteria. Visualized right lung field is clear. IMPRESSION: 1. Prior right shoulder arthroplasty with significant beam hardening artifacts. No evidence of hardware loosening or failure. 2. Moderate acromioclavicular joint osteoarthritis. No acute shoulder fracture or dislocation. No suspicious bony lesions. 3. No evidence of full-thickness rotator cuff tendon rupture. No abnormal soft tissue calcifications. [id number] supraspinatus muscle atrophy. 4. No significant joint effusion or calcified intra-articular loose body is seen on the current study. Dictated by: Daniel De Luna M.D. on 02/26/2023 at 17:29 Approved by: Daniel De Luna M.D. on 02/26/2023 at 17:33
== END ==
PROVIDERS: Family Provider Internal Medicine; PCP Family Medicine; Referring Provider Orthopaedic Surgery; Visit Provider Orthopaedic Surgery
DX: M19.011 Primary osteoarthritis, right shoulder (principal); Z96.611 Presence of right artificial shoulder joint
CPT/HCPCS: 73200